=== PATIENT | female | born 1940 | race Caucasian/White ===

== ENCOUNTER 2017-08-29 18:33 | Inpatient (IN) ==
--- NOTE | 2017-08-29 18:39 | Emergency Department Note ---
Disposition Clinical Impression: Adnexal cyst, Renal cyst, Abdominal pain, History of dementia Chest pain Qualifiers: Chest pain type: unspecified Qualified Code(s): R07.9 - Chest pain, unspecified Acute renal failure (ARF) Qualifiers: Acute renal failure type: unspecified Qualified Code(s): N17.9 - Acute kidney failure, unspecified CKD (chronic kidney disease) Qualifiers: Chronic kidney disease stage: unspecified stage Qualified Code(s): N18.9 - Chronic kidney disease, unspecified Disposition: Admitted As Inpatient Condition: Fair Chest Pain HPI - General Chief Complaint: ED Chest Pain Stated Complaint: Chest Pain/Fariha Time Seen by Provider: 08/29/17 18:36 Source: patient, family Mode of arrival: private vehicle Limitations: other (Hx of dementia x 4 years ) Vital Signs Reviewed: Yes Nursing Notes Reviewed: Yes - History of Present Illness HPI Narrative: 74 year old female with history of dementia, HTN, HLD, CKD III presenting with pleuritic chest pain Pt complaint: chest pain Onset (ago): hour(s) Time: 07:30 Duration: constant Onset: awoke with symptoms Pain Location: right chest Severity: unable Pain Radiation: abdomen Improves with: nothing Worsens with: inspiration Context: other (No recent travel. No recent surgery. ) Associated symptoms: Reports: other Treatments prior to arrival chest pain: none - Related Data Home Medications Medication Instructions Recorded Confirmed Amlodipine [Norvasc] 5 mg PO QAM 02/12/15 03/21/15 Atenolol [Tenormin] 50 mg PO QPM 02/12/15 03/21/15 Cholecalciferol (D-3) 1,000 unit PO BID 03/21/15 03/21/15 Donepezil [Aricept] 5 mg PO HS 03/21/15 03/21/15 FLUoxetine HCl [Prozac] 10 mg PO QAM 03/21/15 03/21/15 Oxybutynin [Ditropan] 5 mg PO DAILY 03/21/15 03/21/15 TraMADol [Ultram] 50 mg PO Q4-6H PRN 03/21/15 03/21/15 Cetirizine HCl [Zyrtec] 10 mg PO 03/22/15 03/22/15 Simvastatin [Zocor] 40 mg PO HS 03/22/15 03/22/15 Previous Rx's Medication Instructions Recorded Mupirocin [Bactroban Oint] 22 gm TP BID #22 tube 11/19/15 Allergies Allergy/AdvReac Type Severity Reaction Status Date / Time Penicillins Allergy Hives Verified 02/12/15 07:57 Sulfa (Sulfonamide Allergy Hives Verified 02/12/15 07:57 Antibiotics) Constitutional: Denies: fever, chills, weakness Eyes: Denies: vision change Cardiovascular: Reports: as per HPI, chest pain. Denies: palpitations Respiratory: Denies: cough, dyspnea, wheezes, hemoptysis Gastrointestinal: Reports: as per HPI, abdominal pain. Denies: nausea, vomiting , diarrhea, hematemesis, melena, hematochezia Genitourinary: Denies: dysuria, frequency, hematuria Musculoskeletal: Reports: arthralgia (hands). Denies: back pain Neurological: Reports: other (dementia). Denies: headache, numbness Psychiatric: Denies: suicidal thoughts, homicidal thoughts Endocrine: Denies: fatigue Chest Pain PMH - Past Medical History Medical history: Reports: hypertension Surgical history: Reports: appendectomy, hysterectomy, orthopedic, other Psychiatric history: Reports: depression - Social History Smoking Status: Never smoker Alcohol use: Reports: occasionally Drug use: Reports: none Physical Exam - General Limitations: other (dementia) General appearance: in no apparent distress - Head Head exam: atraumatic, normocephalic Course - Reevaluation(s) Reevaluation #1: 20:00 - SpO2 > 94%. Status post NTG and aspirin, did not improve chest pain. Patient appears comfortable in bed. Reevaluation #2: 21:00 - Labs, UA reviewed with attending. Trace hematuria in UA. Plan for CT abdomen/pelvis without contrast. POA amenable to plan. Patient states she is amenable to CT. Reevaluation #3: 22:30 - Discussed labs, CT findings including incidental adenxal finding with impression recommendation and hospitalization. POA/daughter present. Pt and POA amenable to hospitalization. - Consultations Consultation #1: 22:00 - Dr. Pacheco in ED. Discussed clinical presentation, labs, imaging with finding of adenxal and renal cyst. Accepts admission for ACS r/o and further evaluation for CT findings. Vital Signs Temperature 98.8 F 08/29/17 18:34 Pulse Rate 79 08/29/17 18:34 Respiratory Rate 18 08/29/17 18:34 Blood Pressure 137/114 08/29/17 18:34 O2 Sat by Pulse Oximetry 99 08/29/17 18:34 Temperature 98.8 F 08/29/17 18:34 Pulse Rate 79 08/29/17 20:52 Respiratory Rate 18 08/29/17 20:52 Blood Pressure 145/74 08/29/17 20:52 O2 Sat by Pulse Oximetry 98 08/29/17 20:52 Oxygen Delivery Oxygen Delivery Room Air Chest Pain - MDM Narrative Medical decision making narrative: 77 y F with dementia cardiac risk factors presenting with chest pain with HEART Score of 5, patient remains at high risk, despite normal first troponin biomarker given ongoing chest pain. D-Dimer <500. Patient to be hospitalized for further evaluation. - Medical Records Medical records reviewed: Yes I reviewed the patient's medical records. - Lab Data Lab results reviewed: Yes I reviewed the patient's lab results. Result diagrams: 08/29/17 19:03 08/29/17 19:03 Lab Results 08/29/17 08/29/17 08/29/17 Range/Units 19:03 19:03 19:03 WBC 10.3 (4.3-11.1) K/mcL RBC 4.59 (3.82-4.97) M/mcL Hgb 12.6 (11.5-15.4) g/dL Hct 39.2 (35.3-44.9) % MCV 85.4 (83.0-100.0) fL MCH 27.5 L (28.0-33.3) pg MCHC 32.1 (31.6-35.5) g/dL RDW 13.3 (11.5-14.5) % Plt Count 296 (140-400) K/mcL MPV 9.6 (9.4-12.4) fL Immature Gran % 0.4 (0-4) % Seg Neutrophils % 74.8 % Lymphocytes % 14.6 % Monocytes % 8.3 % Eosinophils % 1.6 % Basophils % 0.3 % Neutrophils # 7.7 (1.6-8.9) K/mcL Lymphocytes # 1.5 (0.6-4.6) K/mcL Monocytes # 0.9 (0.0-1.3) K/mcL Eosinophils # 0.2 (0.0-0.6) K/mcL Basophils # 0.0 (0.0-0.2) K/mcL D-Dimer (0-500) ng/mLFEU Sodium 137 (136-145) mEq/L Potassium 3.8 (3.5-5.1) mEq/L Chloride 102 (98-107) mEq/L Carbon Dioxide 27 (23-29) mEq/L BUN 23 (8-23) mg/dL Creatinine 1.21 H (0.60-1.20) mg/dL Est GFR ( Amer) 52 L (> 60) Est GFR (Non-Af Amer) 43 L (> 60) BUN/Creatinine Ratio 19 (6-26) Glucose 91 (70-105) mg/dL Calculated Osmolality 287 (280-300) Calcium 9.4 (8.6-10.3) mg/dL Total Bilirubin 0.3 (0.3-1.0) mg/dL AST 19 (13-39) Units/L ALT 13 (7-52) Units/L Alkaline Phosphatase 118 H (34-104) Units/L Troponin I < 0.03 (< 0.04) ng/mL Serum Total Protein 7.4 (6.4-8.9) g/dL Albumin 4.1 (3.5-5.7) g/dL Globulin 3.3 (2.4-3.5) g/dL Albumin/Globulin Ratio 1.2 (1.1-2.2) Urine Color (Yellow) Urine Clarity (Clear) Urine pH (5.0-8.0) pH Units Ur Specific [place] (1.010-1.025) Urine Protein (Neg-Trace) mg/dL Urine Glucose (UA) (Normal) mg/dL Urine Ketones (Negative) mg/dL Urine Blood (Negative) Urine Nitrite (Negative) Urine Bilirubin (Negative) Urine Urobilinogen (Normal) mg/dL Ur Leukocyte Esterase (Negative) Urine Microscopic RBC (0-3) per hpf Urine Microscopic WBC (0-3) per hpf Ur Squamous Epith Cells (None-Few) per lpf Urine Bacteria (None-Few) per hpf Hyaline Casts (None-Few) per lpf Ur Culture Indicated? (NO) 08/29/17 08/29/17 Range/Units 19:14 20:50 WBC (4.3-11.1) K/mcL RBC (3.82-4.97) M/mcL Hgb (11.5-15.4) g/dL Hct (35.3-44.9) % MCV (83.0-100.0) fL MCH (28.0-33.3) pg MCHC (31.6-35.5) g/dL RDW (11.5-14.5) % Plt Count (140-400) K/mcL MPV (9.4-12.4) fL Immature Gran % (0-4) % Seg Neutrophils % % Lymphocytes % % Monocytes % % Eosinophils % % Basophils % % Neutrophils # (1.6-8.9) K/mcL Lymphocytes # (0.6-4.6) K/mcL Monocytes # (0.0-1.3) K/mcL Eosinophils # (0.0-0.6) K/mcL Basophils # (0.0-0.2) K/mcL D-Dimer 443 (0-500) ng/mLFEU Sodium (136-145) mEq/L Potassium (3.5-5.1) mEq/L Chloride (98-107) mEq/L Carbon Dioxide (23-29) mEq/L BUN (8-23) mg/dL Creatinine (0.60-1.20) mg/dL Est GFR ( Amer) (> 60) Est GFR (Non-Af Amer) (> 60) BUN/Creatinine Ratio (6-26) Glucose (70-105) mg/dL Calculated Osmolality (280-300) Calcium (8.6-10.3) mg/dL Total Bilirubin (0.3-1.0) mg/dL AST (13-39) Units/L ALT (7-52) Units/L Alkaline Phosphatase (34-104) Units/L Troponin I (< 0.04) ng/mL Serum Total Protein (6.4-8.9) g/dL Albumin (3.5-5.7) g/dL Globulin (2.4-3.5) g/dL Albumin/Globulin Ratio (1.1-2.2) Urine Color Yellow (Yellow) Urine Clarity Clear (Clear) Urine pH 6.0 (5.0-8.0) pH Units Ur Specific [place] 1.026 H (1.010-1.025) Urine Protein Trace (Neg-Trace) mg/dL Urine Glucose (UA) Normal (Normal) mg/dL Urine Ketones Negative (Negative) mg/dL Urine Blood Trace H (Negative) Urine Nitrite Negative (Negative) Urine Bilirubin Negative (Negative) Urine Urobilinogen Normal (Normal) mg/dL Ur Leukocyte Esterase Negative (Negative) Urine Microscopic RBC 5-15 H (0-3) per hpf Urine Microscopic WBC 0-3 (0-3) per hpf Ur Squamous Epith Cells Many H (None-Few) per lpf Urine Bacteria None Seen (None-Few) per hpf Hyaline Casts None Seen (None-Few) per lpf Ur Culture Indicated? NO (NO) - Radiology Data Radiology results reviewed: Yes I reviewed the patient's radiology results. - EKG Data EKG attestation: Yes I reviewed and interpreted this EKG. EKG results narrative: 18:35:51 Vent rate 89. [place] int 138 ms. QRS 85 ms. QT/QTc 347/394 ms. Ectopic premature complexes noted. Reviewed with attending. Heart Score - Score History: Moderately Suspicious EKG: Normal Age: Greater than 65 Risk Factors: Equal/Greater than 3 risk factor or history of atherosclerotic disease Troponin: Less than normal limit HEART Score Total: 5
[2017-08-29] MEDS ORDERED: Aspirin 81 MG TAB.CHEW PO STA (19:00)
[2017-08-29 19:23] LABS: Basophils % 0.3 %; Eosinophils # 0.2 K/mcL (0.0-0.6); Eosinophils % 1.6 %; Hematocrit 39.2 % (35.3-44.9); Hemoglobin 12.6 g/dL (11.5-15.4); Immature Granulocytes % 0.4 % (0-4); Lymphocytes # 1.5 K/mcL (0.6-4.6); Lymphocytes % 14.6 %; Mean Corpuscular HGB Conc 32.1 g/dL (31.6-35.5); Mean Corpuscular Hemoglobin 27.5 pg (28.0-33.3); Mean Corpuscular Volume 85.4 fL (83.0-100.0); Mean Platelet Volume 9.6 fL (9.4-12.4); Monocytes # 0.9 K/mcL (0.0-1.3); Monocytes % 8.3 %; Neutrophils # 7.7 K/mcL (1.6-8.9); Platelet Count 296 K/mcL (140-400); Red Blood Count 4.59 M/mcL (3.82-4.97); Red Cell Distribution Width 13.3 % (11.5-14.5); Segmented Neutrophils % 74.8 %
[2017-08-29] MEDS ORDERED: Nitroglycerin 0.4 MG TAB.SUBL SL ONE (19:28)
[2017-08-29 19:42] LABS: Albumin 4.1 g/dL (3.5-5.7); Albumin/Globulin Ratio 1.2 (1.1-2.2); Bilirubin,Total 0.3 mg/dL (0.3-1.0); Calcium 9.4 mg/dL (8.6-10.3); Globulin 3.3 g/dL (2.4-3.5); Potassium 3.8 mEq/L (3.5-5.1); Total Protein 7.4 g/dL (6.4-8.9)
[2017-08-29 20:59] LABS: Bilirubin,Urine Negative (Negative); Blood,Urine Trace (Negative); Clarity,Urine Clear (Clear); Color,Urine Yellow (Yellow); Glucose,Urine (UA) Normal (Normal); Ketones,Urine Negative (Negative); Leukocyte Esterase,Urine Negative (Negative); Nitrite,Urine Negative (Negative); Protein,Urine Trace mg/dL (Neg-Trace); Specific Gravity,Urine 1.026 (1.010-1.025); Urobilinogen,Urine Normal (Normal)
[2017-08-29 21:02] LABS: Bacteria,Urine None Seen per hpf (None-Few); Hyaline Casts,Urine None Seen per lpf (None-Few); Squamous Epithelial Cell,Urine Many per lpf (None-Few); WBC,Urine 0-3 per hpf (0-3)
[2017-08-29] MEDS ORDERED: Naloxone 0.4 MG/ML INJ IVP PRN (22:54)
[2017-08-29] MEDS ORDERED: Acetaminophen 325 MG TABLET PO PRN (22:54)
--- NOTE | 2017-08-29 23:41 | Internal Med History&Physical ---
Date of Encounter: 08/29/17 Time of Encounter: 21:00 Internal Medicine - H&P: HPI Chief complaint: Chest pain Admitted From: Home Plans for Post Hospital Care: Home History of present illness: Ms. Marvin is a 77 year old female complaining of chest pain since this morning. Past medical history is significant for dementia, hypertension, CKD. Patient is severe demented. History is obtained from patient's daughter (and POA). Patient complaining of right-sided chest pain since this morning. Patient cannot clearly describe the character of the pain. Patient seems has no shortness of breath, nausea, vomiting, fever, cough, or diaphoresis. Patient said the pain is getting worse on deep breathing. Literally patient also complaining right upper quadrant pain and goes to her right groin area. In the emergency room, d-dimer is negative, abdominal CT unremarkable except incidentally found left side ovary cyst. Patient was admitted for further management, especially to rule out ACS. Past Med Surg Social Fam HX - Past Medical History Medical history: hypertension Psychiatric history: depression - Past Surgical History Surgical History: appendectomy, hysterectomy, orthopedic, other - Social History Smoking Status: Never smoker Smokeless Tobacco Status: No Alcohol use: occasionally Drug use: none - Family History Mother Living Status: Hx Family Cardiac Disorders: Yes Hx Family Respiratory Disorders: Yes Hx Family Cancer: No Hx Family GI Disorders: Yes Hx Family Endocrine Disorder: No Hx Family Neuromuscular Disorders: No Hx Family Neurologic Disorders: No Hx Family HEENT Disorders: No Hx Family Autoimmune Disorders: Yes Internal Medicine - H&P: Meds Amlodipine [Norvasc] 5 mg PO QAM 02/12/15 [History] Atenolol [Tenormin] 50 mg PO QPM 02/12/15 [History] Cholecalciferol (D-3) 1,000 unit PO BID 03/21/15 [History] Donepezil [Aricept] 5 mg PO HS 03/21/15 [History] FLUoxetine HCl [Prozac] 10 mg PO QAM 03/21/15 [History] Oxybutynin [Ditropan] 5 mg PO DAILY 03/21/15 [History] TraMADol [Ultram] 50 mg PO Q4-6H PRN 03/21/15 [History] Cetirizine HCl [Zyrtec] 10 mg PO 03/22/15 [History] Simvastatin [Zocor] 40 mg PO HS 03/22/15 [History] Mupirocin [Bactroban Oint] 22 gm TP BID #22 tube 11/19/15 [Rx] 3 Allergy/AdvReac Type Severity Reaction Status Date / Time Penicillins Allergy Hives Verified 02/12/15 07:57 Sulfa (Sulfonamide Allergy Hives Verified 02/12/15 07:57 Antibiotics) All Systems PM: A 10-system review of systems was performed and is negative for pertinent findings except as documented above in the HPI. - Constitutional Vitals: Temp Pulse Resp BP Pulse Ox 98.8 F 79 18 141/76 98 08/29/17 18:34 08/29/17 20:52 08/29/17 23:29 08/29/17 23:29 08/29/17 20:52 General appearance: Present: A&O X 0, no acute distress, answers questions appropriately - Head Head exam: Present: atraumatic, normocephalic - Eye Eye exam: Present: PERRL, conjuntiva pink, sclera anicteric Pupils: Present: PERRL - Neck Neck exam general surgery: Present: supple, trachea midline. Absent: lymphadenopathy - Respiratory Respiratory exam: Present: CTAB. Absent: accessory muscle use, rales, rhonchi, wheezes - Cardiovascular Cardiovascular exam: Present: RRR, +S1, +S2. Absent: diastolic murmur, gallop, rubs, systolic murmur - GI/Abdominal GI/Abdominal exam: Present: normal bowel sounds, soft, tenderness (RUQ tenderness with positive Morphy's sign), no peritoneal signs. Absent: distended - Extremities Exam Extremities exam: Present: warm, radial pulses palpable and symmetrical. Absent : calf tenderness, cyanotic, pedal edema - Neurological Exam Neurological exam: Present: CN II-XII intact, oriented X3, no focal deficits. Absent: pronater drift, facial droop, speech deficit - Skin Skin exam: Present: dry, intact Internal Med - H&P Results - Labs CBC & Chem 7: 08/29/17 19:03 08/29/17 19:03 - EKG Data -: EKG Interpreted by Myself EKG shows normal: sinus rhythm Rate: normal - Assessment and plan (1) Right upper quadrant pain Current Visit: Yes Status: Acute Assessment and plan: Etiology is undetermined. Patient has no fever, no leukocytosis, within normal limit liver function and bilirubin level. CT abdomen shows cholelithiasis. - We will order ultrasound liver to further identify gallbladder/bile duct abnormalities. - Symptomatic treatment at this point (2) DVT prophylaxis Current Visit: Yes Status: Acute Assessment and plan: Heparin subcutaneously (3) Adnexal cyst Current Visit: Yes Status: Acute Assessment and plan: Incidental finding by abdominal CT. Will order pelvis ultrasound and CA-125. We will consult PLANNING AIDE. Nonurgent, day shift to call. (4) CKD (chronic kidney disease) Current Visit: Yes Status: Acute Assessment and plan: Creatinine level is at baseline Qualifiers: Chronic kidney disease stage: stage 3 (moderate) Qualified Code(s): N18.3 - Chronic kidney disease, stage 3 (moderate) (5) Chest pain Current Visit: Yes Status: Acute Assessment and plan: Patient has atypical chest pain. Chest x-ray and EKG unremarkable. D-dimer negative. Less likely PE. Need to rule out ACS. - Continue cardiac monitoring - Track 3 sets of troponin - Echocardiogram in a.m. Qualifiers: Chest pain type: unspecified Qualified Code(s): R07.9 - Chest pain, unspecified (6) History of dementia Current Visit: Yes Status: Acute Assessment and plan: Continue home medications (7) Renal cyst Current Visit: Yes Status: Acute Assessment and plan: Continue outpatient follow-up - Time Spent With Patient Total time spent is greater than 50% in coordination of care (as documented) at patient's floor/unit and/or counseling patient: 40 minutes Greater than 35 minutes
--- NOTE | 2017-08-29 23:47 | Emergency Department Note ---
Disposition Clinical Impression: Adnexal cyst, Renal cyst, Abdominal pain, History of dementia Chest pain Qualifiers: Chest pain type: unspecified Qualified Code(s): R07.9 - Chest pain, unspecified Acute renal failure (ARF) Qualifiers: Acute renal failure type: unspecified Qualified Code(s): N17.9 - Acute kidney failure, unspecified CKD (chronic kidney disease) Qualifiers: Chronic kidney disease stage: unspecified stage Qualified Code(s): N18.9 - Chronic kidney disease, unspecified Disposition: Admitted As Inpatient Condition: Fair General Adult HPI - General Chief complaint: ED Chest Pain Stated complaint: Chest Pain/Fariha Time Seen by Provider: 08/29/17 18:36 Source: patient, family Mode of arrival: private vehicle Limitations: other (dementia) - History of Present Illness Pain Scale: 2 - Related Data Home Medications Medication Instructions Recorded Confirmed Amlodipine [Norvasc] 5 mg PO QAM 02/12/15 03/21/15 Atenolol [Tenormin] 50 mg PO QPM 02/12/15 03/21/15 Cholecalciferol (D-3) 1,000 unit PO BID 03/21/15 03/21/15 Donepezil [Aricept] 5 mg PO HS 03/21/15 03/21/15 FLUoxetine HCl [Prozac] 10 mg PO QAM 03/21/15 03/21/15 Oxybutynin [Ditropan] 5 mg PO DAILY 03/21/15 03/21/15 TraMADol [Ultram] 50 mg PO Q4-6H PRN 03/21/15 03/21/15 Cetirizine HCl [Zyrtec] 10 mg PO 03/22/15 03/22/15 Simvastatin [Zocor] 40 mg PO HS 03/22/15 03/22/15 Previous Rx's Medication Instructions Recorded Mupirocin [Bactroban Oint] 22 gm TP BID #22 tube 11/19/15 Allergies Allergy/AdvReac Type Severity Reaction Status Date / Time Penicillins Allergy Hives Verified 02/12/15 07:57 Sulfa (Sulfonamide Allergy Hives Verified 02/12/15 07:57 Antibiotics) Constitutional: Denies: fever, chills, weakness Eyes: Denies: vision change Cardiovascular: Reports: as per HPI, chest pain. Denies: palpitations Respiratory: Denies: cough, dyspnea, wheezes, hemoptysis Gastrointestinal: Reports: as per HPI, abdominal pain. Denies: nausea, vomiting , diarrhea, hematemesis, melena, hematochezia Genitourinary: Denies: dysuria, frequency, hematuria Musculoskeletal: Reports: arthralgia (hands). Denies: back pain Neurological: Reports: other (dementia). Denies: headache, numbness Psychiatric: Denies: suicidal thoughts, homicidal thoughts Endocrine: Denies: fatigue Past Medical History - Past Medical History Medical history: Reports: hypertension Surgical history: Reports: appendectomy, hysterectomy, orthopedic, other Psychiatric history: Reports: depression - Social History Smoking Status: Never smoker Smokeless Tobacco Status: No Alcohol use: Reports: occasionally Drug use: Reports: none Physical Exam - General Limitations: other (dementia) General appearance: in no apparent distress Course Vital Signs Temperature 98.8 F 08/29/17 18:34 Pulse Rate 79 08/29/17 18:34 Respiratory Rate 18 08/29/17 18:34 Blood Pressure 137/114 08/29/17 18:34 O2 Sat by Pulse Oximetry 99 08/29/17 18:34 Temperature 98.8 F 08/29/17 18:34 Pulse Rate 79 08/29/17 20:52 Respiratory Rate 18 08/29/17 23:29 Blood Pressure 141/76 08/29/17 23:29 O2 Sat by Pulse Oximetry 98 08/29/17 20:52 Oxygen Delivery Oxygen Delivery Room Air Medical Decision Making - Lab Data Result diagrams: 08/29/17 19:03 08/29/17 19:03 Lab Results 08/29/17 08/29/17 08/29/17 Range/Units 19:03 19:03 19:03 WBC 10.3 (4.3-11.1) K/mcL RBC 4.59 (3.82-4.97) M/mcL Hgb 12.6 (11.5-15.4) g/dL Hct 39.2 (35.3-44.9) % MCV 85.4 (83.0-100.0) fL MCH 27.5 L (28.0-33.3) pg MCHC 32.1 (31.6-35.5) g/dL RDW 13.3 (11.5-14.5) % Plt Count 296 (140-400) K/mcL MPV 9.6 (9.4-12.4) fL Immature Gran % 0.4 (0-4) % Seg Neutrophils % 74.8 % Lymphocytes % 14.6 % Monocytes % 8.3 % Eosinophils % 1.6 % Basophils % 0.3 % Neutrophils # 7.7 (1.6-8.9) K/mcL Lymphocytes # 1.5 (0.6-4.6) K/mcL Monocytes # 0.9 (0.0-1.3) K/mcL Eosinophils # 0.2 (0.0-0.6) K/mcL Basophils # 0.0 (0.0-0.2) K/mcL D-Dimer (0-500) ng/mLFEU Sodium 137 (136-145) mEq/L Potassium 3.8 (3.5-5.1) mEq/L Chloride 102 (98-107) mEq/L Carbon Dioxide 27 (23-29) mEq/L BUN 23 (8-23) mg/dL Creatinine 1.21 H (0.60-1.20) mg/dL Est GFR ( Amer) 52 L (> 60) Est GFR (Non-Af Amer) 43 L (> 60) BUN/Creatinine Ratio 19 (6-26) Glucose 91 (70-105) mg/dL Calculated Osmolality 287 (280-300) Calcium 9.4 (8.6-10.3) mg/dL Total Bilirubin 0.3 (0.3-1.0) mg/dL AST 19 (13-39) Units/L ALT 13 (7-52) Units/L Alkaline Phosphatase 118 H (34-104) Units/L Troponin I < 0.03 (< 0.04) ng/mL Serum Total Protein 7.4 (6.4-8.9) g/dL Albumin 4.1 (3.5-5.7) g/dL Globulin 3.3 (2.4-3.5) g/dL Albumin/Globulin Ratio 1.2 (1.1-2.2) Urine Color (Yellow) Urine Clarity (Clear) Urine pH (5.0-8.0) pH Units Ur Specific [place] (1.010-1.025) Urine Protein (Neg-Trace) mg/dL Urine Glucose (UA) (Normal) mg/dL Urine Ketones (Negative) mg/dL Urine Blood (Negative) Urine Nitrite (Negative) Urine Bilirubin (Negative) Urine Urobilinogen (Normal) mg/dL Ur Leukocyte Esterase (Negative) Urine Microscopic RBC (0-3) per hpf Urine Microscopic WBC (0-3) per hpf Ur Squamous Epith Cells (None-Few) per lpf Urine Bacteria (None-Few) per hpf Hyaline Casts (None-Few) per lpf Ur Culture Indicated? (NO) 08/29/17 08/29/17 Range/Units 19:14 20:50 WBC (4.3-11.1) K/mcL RBC (3.82-4.97) M/mcL Hgb (11.5-15.4) g/dL Hct (35.3-44.9) % MCV (83.0-100.0) fL MCH (28.0-33.3) pg MCHC (31.6-35.5) g/dL RDW (11.5-14.5) % Plt Count (140-400) K/mcL MPV (9.4-12.4) fL Immature Gran % (0-4) % Seg Neutrophils % % Lymphocytes % % Monocytes % % Eosinophils % % Basophils % % Neutrophils # (1.6-8.9) K/mcL Lymphocytes # (0.6-4.6) K/mcL Monocytes # (0.0-1.3) K/mcL Eosinophils # (0.0-0.6) K/mcL Basophils # (0.0-0.2) K/mcL D-Dimer 443 (0-500) ng/mLFEU Sodium (136-145) mEq/L Potassium (3.5-5.1) mEq/L Chloride (98-107) mEq/L Carbon Dioxide (23-29) mEq/L BUN (8-23) mg/dL Creatinine (0.60-1.20) mg/dL Est GFR ( Amer) (> 60) Est GFR (Non-Af Amer) (> 60) BUN/Creatinine Ratio (6-26) Glucose (70-105) mg/dL Calculated Osmolality (280-300) Calcium (8.6-10.3) mg/dL Total Bilirubin (0.3-1.0) mg/dL AST (13-39) Units/L ALT (7-52) Units/L Alkaline Phosphatase (34-104) Units/L Troponin I (< 0.04) ng/mL Serum Total Protein (6.4-8.9) g/dL Albumin (3.5-5.7) g/dL Globulin (2.4-3.5) g/dL Albumin/Globulin Ratio (1.1-2.2) Urine Color Yellow (Yellow) Urine Clarity Clear (Clear) Urine pH 6.0 (5.0-8.0) pH Units Ur Specific [place] 1.026 H (1.010-1.025) Urine Protein Trace (Neg-Trace) mg/dL Urine Glucose (UA) Normal (Normal) mg/dL Urine Ketones Negative (Negative) mg/dL Urine Blood Trace H (Negative) Urine Nitrite Negative (Negative) Urine Bilirubin Negative (Negative) Urine Urobilinogen Normal (Normal) mg/dL Ur Leukocyte Esterase Negative (Negative) Urine Microscopic RBC 5-15 H (0-3) per hpf Urine Microscopic WBC 0-3 (0-3) per hpf Ur Squamous Epith Cells Many H (None-Few) per lpf Urine Bacteria None Seen (None-Few) per hpf Hyaline Casts None Seen (None-Few) per lpf Ur Culture Indicated? NO (NO) Attestation Statement - Attestation Attestation: I examined this patient and my medical decision-making was reviewed with the Resident Physician. I agree with the documented findings, disposition and treatment plan as described except to the extent set forth below. Poor historian d/t dementia, describes sx poorly. Discussed in detail w Dr. Chung and Dr. Riggins.
[2017-08-30 01:18] LABS: Basophils % 0.2 %; Eosinophils # 0.1 K/mcL (0.0-0.6); Eosinophils % 0.7 %; Hemoglobin 12.1 g/dL (11.5-15.4); Immature Granulocytes % 0.4 % (0-4); Lymphocytes # 1.2 K/mcL (0.6-4.6); Lymphocytes % 9.6 %; Mean Corpuscular HGB Conc 32.7 g/dL (31.6-35.5); Mean Corpuscular Hemoglobin 27.6 pg (28.0-33.3); Mean Corpuscular Volume 84.5 fL (83.0-100.0); Mean Platelet Volume 9.6 fL (9.4-12.4); Monocytes # 0.9 K/mcL (0.0-1.3); Monocytes % 7.4 %; Platelet Count 287 K/mcL (140-400); Red Blood Count 4.38 M/mcL (3.82-4.97); Red Cell Distribution Width 13.2 % (11.5-14.5); Segmented Neutrophils % 81.7 %
[2017-08-30 01:41] LABS: Calcium 9.3 mg/dL (8.6-10.3); Magnesium 2.1 mg/dL (1.6-2.6); Potassium 3.9 mEq/L (3.5-5.1)
[2017-08-30] MEDS: *HR* Heparin 5,000 UNIT/ML VIAL SQ SCH ×2 (06:24→17:44)
[2017-08-30] MEDS: FLUoxetine HCl 10 MG CAPSULE PO SCH (07:38)
[2017-08-30] MEDS: amLODIPine 5 MG TABLET PO SCH (07:39)
--- NOTE | 2017-08-30 11:40 | Internal Med Progress Note ---
Date of Encounter: 08/30/17 Time of Encounter: 11:30 - Assessment and plan (1) Right upper quadrant pain Current Visit: Yes Status: Acute Assessment and plan: Likely 2/[address] abdomen shows cholelithiasis. - We will order ultrasound liver to further identify gallbladder/bile duct abnormalities. Surgery consulted. Appreciate surgery recs (2) CKD (chronic kidney disease) Current Visit: Yes Status: Acute Assessment and plan: Creatinine level is at baseline Qualifiers: Chronic kidney disease stage: stage 3 (moderate) Qualified Code(s): N18.3 - Chronic kidney disease, stage 3 (moderate) (3) Adnexal cyst Current Visit: Yes Status: Acute Assessment and plan: Incidental finding by abdominal CT. Will order pelvis ultrasound and CA-125. Outpatient follow up (4) Renal cyst Current Visit: Yes Status: Acute Assessment and plan: Continue outpatient follow-up (5) History of dementia Current Visit: Yes Status: Acute Assessment and plan: Continue home medications (6) DVT prophylaxis Current Visit: Yes Status: Acute Assessment and plan: Heparin subcutaneously (7) Chest pain Current Visit: Yes Status: Acute Assessment and plan: Patient has atypical chest pain. Chest x-ray and EKG unremarkable. D-dimer negative. Less likely PE. Need to rule out ACS. - Continue cardiac monitoring - Track 3 sets of troponin - Echocardiogram in a.m. Qualifiers: Chest pain type: unspecified Qualified Code(s): R07.9 - Chest pain, unspecified - Time Spent With Patient Total time spent is greater than 50% in coordination of care (as documented) at patient's floor/unit and/or counseling patient: - Subjective Interval history: No acute events overnight - Constitutional Vitals: Temp Pulse Resp BP Pulse Ox 98.2 F 76 18 153/83 93 08/30/17 11:20 08/30/17 11:20 08/30/17 11:20 08/30/17 11:20 08/30/17 11:20 General appearance: Present: A&O X 0, no acute distress, answers questions appropriately - Head Head exam: Present: atraumatic, normocephalic - Eye Eye exam: Present: PERRL, conjuntiva pink, sclera anicteric Pupils: Present: PERRL - Neck Neck exam general surgery: Present: supple, trachea midline. Absent: lymphadenopathy - Respiratory Respiratory exam: Present: CTAB. Absent: accessory muscle use, rales, rhonchi, wheezes - Cardiovascular Cardiovascular exam: Present: RRR, +S1, +S2. Absent: diastolic murmur, gallop, rubs, systolic murmur - GI/Abdominal GI/Abdominal exam: Present: normal bowel sounds, soft, no peritoneal signs. Absent: distended, tenderness - Extremities Exam Extremities exam: Present: warm, radial pulses palpable and symmetrical. Absent : calf tenderness, cyanotic, pedal edema - Neurological Exam Neurological exam: Present: CN II-XII intact, oriented X3, no focal deficits. Absent: pronater drift, facial droop, speech deficit - Skin Skin exam: Present: dry, intact Internal Medicine: Result - Labs CBC & Chem 7: 08/30/17 01:00 08/30/17 01:00 Labs: Short CBC 08/30/17 Range/Units 01:00 WBC 12.3 H (4.3-11.1) K/mcL Hgb 12.1 (11.5-15.4) g/dL Hct 37.0 (35.3-44.9) % Plt Count 287 (140-400) K/mcL Neutrophils # 10.0 H (1.6-8.9) K/mcL BMP 08/30/17 01:00 Sodium 137 Potassium 3.9 Chloride 102 Carbon Dioxide 27 BUN 21 Creatinine 1.10 Glucose 116 H Calcium 9.3 Cardiac Enzymes 08/30/17 08/30/17 Range/Units 01:00 06:19 Troponin I < 0.03 < 0.03 (< 0.04) ng/mL - ABG Interpretation ABG results: PT/INR, D-dimer D-Dimer 443 ng/mLFEU (0-500) 08/29/17 19:14 Consult Discharge Plan - Plan Referrals: Sergei Anderson DO [Primary Care Provider] -
--- NOTE | 2017-08-30 14:22 | General Surgery Consult Note ---
<Long Lopez - Last Filed: 08/30/17 14:54> Date of Encounter: 08/30/17 Time of Encounter: 14:20 Assessment and Plan (1) Cholelithiasis Status: Acute CT abd pelvis showed: "Single calcified gallstone. No definite gallbladder wall thickening or inflammatory changes. No biliary ductal dilatation. " CT Images reviewed by myself and Dr. Bennett. Cholelithiasis present. No signs of cholecystitis, or obstruction of gallbladder on imaging. No tenderness to palpation on exam. Negative Polanco's sign. plan: Will review U/S images when they become available. No need for surgical intervention at this point. Patient can follow up with surgery as an outpatient for her cholelithiasis. Qualifiers: Cholelithiasis location: gallbladder Cholecystitis presence: without cholecystitis Biliary obstruction: without biliary obstruction Qualified Code(s): K80.20 - Calculus of gallbladder without cholecystitis without obstruction History of Present Illness Consult date: 08/30/17 Reason for consult: gallstones Requesting physician: Frankie Garduno History of present illness: 77 yo F c PMHx of dementia, HTN, CKD presented ot the hospital for R sided chest pain beginning the morning of admission yesterday. History at that time was provided by Daughter her RIKAA. No family is present at bedside at this time. History is obtained from chart review and what the aptient is able to tell me, but she is a very poor historian. Per records patient complained of R sided chest pain and RUQ pain that radiated to the groin . Records indicate patient said pain was worse with deep breathing. Patient had no SOB, , N, V, D, Fever, cough, or diaphoresis. Pt was worked up in the ED. Lab work showed negative D-Dimer, negative troponin. WBC, Hgb, Hct, plts all wnl. Alk phos slightly elevatd at 118, but all other LFTs normal. CT abd pelvis showed: "Single calcified gallstone. No definite gallbladder wall thickening or inflammatory changes. No biliary ductal dilatation. 7.1 cm right and 3.8 cm left adnexal cysts. Recommend consideration of MRI with IV contrast or surgical evaluation. 3.9 cm right renal cyst. This is likely benign and no further imaging is recommended. Small volume of nonspecific fluid posterior to the right hepatic lobe." Today WBC is slightly elevated at 12.3. On talking with patient she cannot describe the pain or say for sure where the pain was. when pressed she indicates her leg as being where the pain was. She denies abd pain, N, V, D, Chest pain, SOB, constipation. She does not know if she's ever had surgery on her abdomen before. She does have a surgical scar on her abd. Chart review indicates patient had , ex lap for adhesion, and an appendectomy. Past Med Surg Social Fam HX - Past Medical History Medical history: hyperlipidemia, hypertension, renal disease Psychiatric history: depression - Past Surgical History Surgical History: appendectomy, , hysterectomy, orthopedic, other - Social History Smoking Status: Never smoker Smokeless Tobacco Status: No Alcohol use: occasionally Drug use: none - Family History Mother Adopted: [place]: Zaira Cornejo Age: 80 Family Member Ethnicity: Non- Living Status: Age at : 80 Cause of : COPD Hx Family Cardiac Disorders: Yes Hx Family Respiratory Disorders: Yes (COPD) Hx Family Cancer: No Hx Family GI Disorders: No Hx Family Genitourinary Disorders: No Hx Family Endocrine Disorder: No Hx Family Musculoskeletal Disorders: No Hx Family Neuromuscular Disorders: No Hx Family Neurologic Disorders: No Hx Family HEENT Disorders: No Hx Family Autoimmune Disorders: No Hx Family Reproductive Disorders: No Hx Family Psychosocial Disorders: No Hx Family Medical Disorders: No Medications and Allergies Amlodipine [Norvasc] 5 mg PO QAM 02/12/15 [History] Donepezil [Aricept] 10 mg PO HS 03/21/15 [History] FLUoxetine HCl [Prozac] 10 mg PO QAM 03/21/15 [History] Oxybutynin [Ditropan] 5 mg PO DAILY 03/21/15 [History] Cetirizine HCl [Zyrtec] 10 mg PO PRN PRN 03/22/15 [History] Simvastatin [Zocor] 40 mg PO HS 03/22/15 [History] Melatonin/Pyridoxine HCl (B6) [Melatonin 3 mg Tablet] 1 each PO PRN PRN [History] Memantine HCl 10 mg PO BID 08/30/17 [History] Metoprolol [Lopressor] 25 mg PO DAILY 08/30/17 [History] Ursodiol 250 mg PO BID #60 tablet 08/31/17 [Rx] 3 Allergy/AdvReac Type Severity Reaction Status Date / Time Penicillins Allergy Hives Verified 08/30/17 12:36 Sulfa (Sulfonamide Allergy Hives Verified 08/30/17 12:36 Antibiotics) Review of Systems All systems PM: The remainder of the systems were reviewed and are negative General Surgery Exam Initial Vital Signs Temp Pulse Resp BP Pulse Ox 98.8 F 79 18 137/114 99 08/29/17 18:34 08/29/17 18:34 08/29/17 18:34 08/29/17 18:34 08/29/17 18:34 - General physical appearance well developed, well nourished, no distress - Eyes normal ocular movement - ENT normal mucosa - Neck trachea midline - Respiratory normal expansion, normal respiratory effort, clear to auscultation - Cardiovascular Cardiovascular exam: Present: RRR, no murmurs/rubs/gallops - Abdomen Abdomen general surgery: Present: bowel sounds present, soft, non tender, surgical scars - Integumentary Integumentary general surgery: Present: warm and dry - Neurologic Present: CN 2-12 grossly intact - Musculoskeletal Present: normal posture - Psychiatric Psychiatric general surgery: Present: appropriate, speech is normal Exam Initial Vital Signs Temp Pulse Resp BP Pulse Ox 98.8 F 79 18 137/114 99 08/29/17 18:34 08/29/17 18:34 08/29/17 18:34 08/29/17 18:34 08/29/17 18:34 Results - Labs 08/30/17 01:00 08/30/17 01:00 Abnormal lab results WBC 12.3 K/mcL (4.3-11.1) H 08/30/17 01:00 MCH 27.6 pg (28.0-33.3) L 08/30/17 01:00 Neutrophils # 10.0 K/mcL (1.6-8.9) H 08/30/17 01:00 Est GFR ( Amer) 58 (> 60) L 08/30/17 01:00 Est GFR (Non-Af Amer) 48 (> 60) L 08/30/17 01:00 Glucose 116 mg/dL (70-105) H 08/30/17 01:00 Alkaline Phosphatase 118 Units/L (34-104) H 08/29/17 19:03 Ur Specific Lipan 1.026 (1.010-1.025) H 08/29/17 20:50 Urine Blood Trace (Negative) H 08/29/17 20:50 Urine Microscopic RBC 5-15 per hpf (0-3) H 08/29/17 20:50 Ur Squamous Epith Cells Many per lpf (None-Few) H 08/29/17 20:50 Diabetes panel 08/30/17 Range/Units 01:00 Sodium 137 (136-145) mEq/L Potassium 3.9 (3.5-5.1) mEq/L Chloride 102 (98-107) mEq/L Carbon Dioxide 27 (23-29) mEq/L BUN 21 (8-23) mg/dL Creatinine 1.10 (0.60-1.20) mg/dL Glucose 116 H (70-105) mg/dL Calcium 9.3 (8.6-10.3) mg/dL Calcium panel 08/30/17 Range/Units 01:00 Calcium 9.3 (8.6-10.3) mg/dL Pituitary panel 08/30/17 Range/Units 01:00 Sodium 137 (136-145) mEq/L Potassium 3.9 (3.5-5.1) mEq/L Chloride 102 (98-107) mEq/L Carbon Dioxide 27 (23-29) mEq/L BUN 21 (8-23) mg/dL Creatinine 1.10 (0.60-1.20) mg/dL Glucose 116 H (70-105) mg/dL Calcium 9.3 (8.6-10.3) mg/dL Adrenal panel 08/30/17 Range/Units 01:00 Sodium 137 (136-145) mEq/L Potassium 3.9 (3.5-5.1) mEq/L Chloride 102 (98-107) mEq/L Carbon Dioxide 27 (23-29) mEq/L BUN 21 (8-23) mg/dL Creatinine 1.10 (0.60-1.20) mg/dL Glucose 116 H (70-105) mg/dL Calcium 9.3 (8.6-10.3) mg/dL All other labs normal. Consult Discharge Plan - Plan Additional Instructions: Follow-up appointments: If there is not an appointment listed below, please call your physician and schedule a follow-up appointment. If you have congestive heart failure and your symptoms return, make an appointment with your physician. Medication List: Carry an up to date list of medications you are taking at all time. We have given you an updated medication list including any new medications that you have been prescribed. Please provide that list to your primary provider Symptoms: If your condition changes or you experience any of the following symptoms, notify your physician immediately: Unusual or worsening pain, fever, persistent nausea and vomiting, bleeding, increase in swelling (especially in your legs), sudden weight gain, extreme dizziness, chest pain, increased drainage or redness from a wound or incision. Go to the emergency department if you experience a problem with breathing. Weights: If you have a history of swelling or shortness of breath, weigh yourself daily and notify your physician if you have a weight gain of two or more pounds in one day or 5 or more pounds in a week. If you experience any of the warning signs for stroke: Sudden numbness or weakness of the face, arm or leg; especially on one side of the body, sudden confusion, trouble speaking or understanding, sudden trouble seeing in one or both eyes, sudden trouble walking, dizziness, loss of balance or coordination, sudden sever headache with no cause; Call 911 or go to the emergency room. Stroke is a medical emergency. Some risk factors for stroke: Age, cigarette smoking, diabetes, excessive alcohol consumption, family history , high blood pressure, overweight, physical inactivity, prior stroke, heart attack, diagnosis of carotid artery stenosis or other artery disease. If you smoke, STOP: Smoking or tobacco use significantly increases your risk of heart and lung disease. Your chance of disease greatly increases if you continue to smoke. For more information, call the [place] tobacco quit line for smoking cessation QUIT-NOW ( ) Prescriptions: Ursodiol 250 mg PO BID #60 tablet <Arnie Bennett - Last Filed: 08/31/17 15:08> Date of Encounter: 08/30/17 Review of Systems All systems PM: The remainder of the systems were reviewed and are negative General Surgery Exam Initial Vital Signs Temp Pulse Resp BP Pulse Ox 98.8 F 79 18 137/114 99 08/29/17 18:34 08/29/17 18:34 08/29/17 18:34 08/29/17 18:34 08/29/17 18:34 Exam Initial Vital Signs Temp Pulse Resp BP Pulse Ox 98.8 F 79 18 137/114 99 08/29/17 18:34 08/29/17 18:34 08/29/17 18:34 08/29/17 18:34 08/29/17 18:34 Results - Labs 08/31/17 01:09 08/31/17 01:09 Abnormal lab results MCH 27.1 pg (28.0-33.3) L 08/31/17 01:09 Est GFR ( Amer) 56 (> 60) L 08/31/17 01:09 Est GFR (Non-Af Amer) 46 (> 60) L 08/31/17 01:09 Alkaline Phosphatase 118 Units/L (34-104) H 08/29/17 19:03 CA 125 Ag Serial Mntr 39 U/mL (Less than 35) H 08/31/17 10:26 Ur Specific Lipan 1.026 (1.010-1.025) H 08/29/17 20:50 Urine Blood Trace (Negative) H 08/29/17 20:50 Urine Microscopic RBC 5-15 per hpf (0-3) H 08/29/17 20:50 Ur Squamous Epith Cells Many per lpf (None-Few) H 08/29/17 20:50 Diabetes panel 08/31/17 Range/Units 01:09 Sodium 136 (136-145) mEq/L Potassium 4.0 (3.5-5.1) mEq/L Chloride 103 (98-107) mEq/L Carbon Dioxide 27 (23-29) mEq/L BUN 21 (8-23) mg/dL Creatinine 1.14 (0.60-1.20) mg/dL Glucose 105 (70-105) mg/dL Calcium 9.1 (8.6-10.3) mg/dL Calcium panel 08/31/17 Range/Units 01:09 Calcium 9.1 (8.6-10.3) mg/dL Pituitary panel 08/31/17 Range/Units 01:09 Sodium 136 (136-145) mEq/L Potassium 4.0 (3.5-5.1) mEq/L Chloride 103 (98-107) mEq/L Carbon Dioxide 27 (23-29) mEq/L BUN 21 (8-23) mg/dL Creatinine 1.14 (0.60-1.20) mg/dL Glucose 105 (70-105) mg/dL Calcium 9.1 (8.6-10.3) mg/dL Adrenal panel 08/31/17 Range/Units 01:09 Sodium 136 (136-145) mEq/L Potassium 4.0 (3.5-5.1) mEq/L Chloride 103 (98-107) mEq/L Carbon Dioxide 27 (23-29) mEq/L BUN 21 (8-23) mg/dL Creatinine 1.14 (0.60-1.20) mg/dL Glucose 105 (70-105) mg/dL Calcium 9.1 (8.6-10.3) mg/dL All other labs normal. - Attending Attestation I examined this patient and my medical decision-making was reviewed with the Resident Physician. I agree with the documented findings, disposition and treatment plan as described except to the extent set forth below. The patient is seen and evaluated with resident on rounds. The patient suffers from dementia. We were able to establish that she is not having any abdominal pain. Her examination is negative for Polanco sign or any abdominal discomfort. I personally reviewed the CAT scan images. She does have cholelithiasis. At this point I would classify this is asymptomatic cholelithiasis. I would recommend taking no action. Arnie Bennett MD FACS
[2017-08-31 01:29] LABS: Basophils % 0.4 %; Eosinophils # 0.2 K/mcL (0.0-0.6); Eosinophils % 2.3 %; Hematocrit 38.6 % (35.3-44.9); Hemoglobin 12.4 g/dL (11.5-15.4); Immature Granulocytes % 0.3 % (0-4); Lymphocytes # 1.7 K/mcL (0.6-4.6); Lymphocytes % 20.9 %; Mean Corpuscular HGB Conc 32.1 g/dL (31.6-35.5); Mean Corpuscular Hemoglobin 27.1 pg (28.0-33.3); Mean Corpuscular Volume 84.5 fL (83.0-100.0); Mean Platelet Volume 9.5 fL (9.4-12.4); Monocytes # 0.7 K/mcL (0.0-1.3); Monocytes % 8.3 %; Neutrophils # 5.4 K/mcL (1.6-8.9); Platelet Count 272 K/mcL (140-400); Red Blood Count 4.57 M/mcL (3.82-4.97); Red Cell Distribution Width 13.4 % (11.5-14.5); Segmented Neutrophils % 67.8 %
[2017-08-31 01:52] LABS: Calcium 9.1 mg/dL (8.6-10.3)
[2017-08-31] MEDS: *HR* Heparin 5,000 UNIT/ML VIAL SQ SCH (05:15)
[2017-08-31] MEDS: FLUoxetine HCl 10 MG CAPSULE PO SCH (09:44)
[2017-08-31] MEDS: amLODIPine 5 MG TABLET PO SCH (09:44)
--- NOTE | 2017-08-31 10:21 | Discharge Summary ---
- NOTES TO OUTPATIENT PROVIDER Notes to Outpatient Provider: Follow up with Surgery and Jack Setter Orders not resulted at time of discharge: Pending orders 08/31/17 10:17 Cancer Antigen 125 Routine Date of Encounter: 08/31/17 Time of Encounter: 10:20 - Discharge Diagnosis (1) Right upper quadrant pain Priority: Primary Status: Acute Assessment and Plan: Likely 2/[address] abdomen shows cholelithiasis. - We will order ultrasound liver to further identify gallbladder/bile duct abnormalities. Ultrasound showed cholelithiasis with no sonographic evidence of cholecystitis. Surgery plan for no acute intervention. Will start on ursodeoxycholic acid and have her f/u up outpatient with GI/ surgery (2) CKD (chronic kidney disease) Priority: Secondary Status: Acute Assessment and Plan: Creatinine level is at baseline Qualifiers: Chronic kidney disease stage: stage 3 (moderate) Qualified Code(s): N18.3 - Chronic kidney disease, stage 3 (moderate) (3) Adnexal cyst Priority: Secondary Status: Acute Assessment and Plan: Incidental finding by abdominal CT. Pelvic ultrasound showed right adnexal cyst and CA-125. Jack Setter recommend Ca 125 levels and will follow up outpatient (4) Renal cyst Priority: Secondary Status: Acute Assessment and Plan: Continue outpatient follow-up. No acute intervention (5) History of dementia Priority: Secondary Status: Acute Assessment and Plan: Continue home medications (6) DVT prophylaxis Priority: Secondary Status: Acute Assessment and Plan: Heparin subcutaneously (7) Chest pain Priority: Secondary Status: Acute Assessment and Plan: Patient has atypical chest pain. Likley musculoskeletal. Pain control PRN. Echo came back WNL Qualifiers: Chest pain type: unspecified Qualified Code(s): R07.9 - Chest pain, unspecified Hospital course: Ms. Marvin is a 77 year old female - Time Spent with Patient Total time spent providing and/or coordinating discharge services: - Discharge Medications Prescriptions: Ursodiol 250 mg PO BID #60 tablet Home Medications: Amlodipine [Norvasc] 5 mg PO QAM 02/12/15 [History] Donepezil [Aricept] 10 mg PO HS 03/21/15 [History] FLUoxetine HCl [Prozac] 10 mg PO QAM 03/21/15 [History] Oxybutynin [Ditropan] 5 mg PO DAILY 03/21/15 [History] Cetirizine HCl [Zyrtec] 10 mg PO PRN PRN 03/22/15 [History] Simvastatin [Zocor] 40 mg PO HS 03/22/15 [History] Melatonin/Pyridoxine HCl (B6) [Melatonin 3 mg Tablet] 1 each PO PRN PRN [History] Memantine HCl 10 mg PO BID 08/30/17 [History] Metoprolol [Lopressor] 25 mg PO DAILY 08/30/17 [History] Ursodiol 250 mg PO BID #60 tablet 08/31/17 [Rx] Allergies/Adverse Reactions: 3 Allergy/AdvReac Type Severity Reaction Status Date / Time Penicillins Allergy Hives Verified 08/30/17 12:36 Sulfa (Sulfonamide Allergy Hives Verified 08/30/17 12:36 Antibiotics) Date of admission: 08/30/17 16:07 Primary care physician: Sergei Anderson, - Constitutional Vitals: Temp Pulse Resp BP Pulse Ox 97.9 F 62 16 139/58 96 08/31/17 07:24 08/31/17 07:24 08/31/17 07:24 08/31/17 07:24 08/31/17 07:24 General appearance: Present: A&O X 0, no acute distress, answers questions appropriately - Head Head exam: Present: atraumatic, normocephalic - Eye Eye exam: Present: PERRL, conjuntiva pink, sclera anicteric Pupils: Present: PERRL - Neck Neck exam general surgery: Present: supple, trachea midline. Absent: lymphadenopathy - Respiratory Respiratory exam: Present: CTAB. Absent: accessory muscle use, rales, rhonchi, wheezes - Cardiovascular Cardiovascular exam: Present: RRR, +S1, +S2. Absent: diastolic murmur, gallop, rubs, systolic murmur - GI/Abdominal GI/Abdominal exam: Present: normal bowel sounds, soft, no peritoneal signs. Absent: distended, tenderness - Extremities Exam Extremities exam: Present: warm, radial pulses palpable and symmetrical. Absent : calf tenderness, cyanotic, pedal edema - Neurological Exam Neurological exam: Present: CN II-XII intact, oriented X3, no focal deficits. Absent: pronater drift, facial droop, speech deficit - Skin Skin exam: Present: dry, intact - Patient Status Disposition: Home, Self-Care Condition: Good - Discharge Instructions Additional Instructions: Follow-up appointments: If there is not an appointment listed below, please call your physician and schedule a follow-up appointment. If you have congestive heart failure and your symptoms return, make an appointment with your physician. Medication List: Carry an up to date list of medications you are taking at all time. We have given you an updated medication list including any new medications that you have been prescribed. Please provide that list to your primary provider Symptoms: If your condition changes or you experience any of the following symptoms, notify your physician immediately: Unusual or worsening pain, fever, persistent nausea and vomiting, bleeding, increase in swelling (especially in your legs), sudden weight gain, extreme dizziness, chest pain, increased drainage or redness from a wound or incision. Go to the emergency department if you experience a problem with breathing. Weights: If you have a history of swelling or shortness of breath, weigh yourself daily and notify your physician if you have a weight gain of two or more pounds in one day or 5 or more pounds in a week. If you experience any of the warning signs for stroke: Sudden numbness or weakness of the face, arm or leg; especially on one side of the body, sudden confusion, trouble speaking or understanding, sudden trouble seeing in one or both eyes, sudden trouble walking, dizziness, loss of balance or coordination, sudden sever headache with no cause; Call 911 or go to the emergency room. Stroke is a medical emergency. Some risk factors for stroke: Age, cigarette smoking, diabetes, excessive alcohol consumption, family history , high blood pressure, overweight, physical inactivity, prior stroke, heart attack, diagnosis of carotid artery stenosis or other artery disease. If you smoke, STOP: Smoking or tobacco use significantly increases your risk of heart and lung disease. Your chance of disease greatly increases if you continue to smoke. For more information, call the [employer] tobacco quit line for smoking cessation QUIT-NOW ( )
[2017-08-31 11:21] VITALS: BP 113/67
--- NOTE | 2017-08-31 16:54 | Electrocardiograph Report ---
[address] [place], [place] [address] Test Date: 2017-08-29 Pat Name: Kay Marvin Department: 102 Room: [facility] Gender: F Call Center Support Consultant: : 1940 Requested By: Brea Chung Order Number: [id number] Reading MD: Pati Lowery Measurements Intervals [place] Rate: 89 P: 43 HI: 138 QRS: 28 QRSD: 85 T: 52 QT: 347 QTc: 394 Interpretive Statements SINUS RHYTHM WITH ECTOPIC PREMATURE COMPLEXES MODERATE ST DEPRESSION [0.05+ mV ST DEPRESSION] Electronically Signed On 08-31-2017 16:52:40 EDT by Pati Lowery
== END 2017-08-31 14:10 | disposition home or self-care (01) | DRG 446 ==
LOC: EMEROO 18:33 → 3NENU 18:33 → SUATTDRO 08-30 16:07
PROVIDERS: ADMIT Internal Medicine; ATTEND Student in an Organized Health Care Education/Training Program

== ENCOUNTER 2018-10-12 15:02 | Inpatient (IN) ==
--- NOTE | 2018-10-12 15:12 | Emergency Department Note ---
Disposition Clinical Impression: Dehydration, UTI (urinary tract infection), Frail elderly, Acute kidney injury, Dementia, Weakness, Confusion, Unable to walk Disposition: Admitted As Inpatient Referrals: Sergei Anderson DO [Primary Care Provider] - Forms: Work/School Release, ED Satisfaction Letter Time of Disposition: 19:59 General Adult HPI - General Chief complaint: ED Weakness Stated complaint: generalized weakness; sleeping A LOT! Time Seen by Provider: 10/12/18 15:10 Source: patient, family Limitations: no limitations - History of Present Illness HPI Narrative: 78-year-old female with a history of dementia was brought in by her daughter from home regarding weakness and confusion which has been present and progress scotty over the last 2 days. There is no history of chest pain shortness of breath abdominal pain vomiting or diarrhea. The patient's daughter reports the patient was so weak today that she did not want to eat and she had to have assistance getting her into the car. There is no history of fall or injury. No headache or convulsion no slurred speech arm or leg weakness or numbness or facial drooping. The patient is not known to be diabetic and has no history of hypothyroidism. She was recently evaluated and diagnosed with COPD and started taking some inhalers last week. She does not describe a cough. There is no history of leg swelling or pain. No flank pain or urinary symptoms. No skin rashes or fevers. Generalized weakness and progressive confusion is reported. The patient's daughter reports she had scheduled an appointment with her primary care provider at 4:15 PM today but the patient was so weak she couldn't walk so she called the primary care physician's office and they recommended she go to the emergency department. Pain Scale: 0 - Related Data Home Medications Medication Instructions Recorded Confirmed Amlodipine [Norvasc] 5 mg PO QAM 02/12/15 08/30/17 Donepezil [Aricept] 10 mg PO HS 03/21/15 08/30/17 FLUoxetine HCl [Prozac] 10 mg PO QAM 03/21/15 08/30/17 Oxybutynin [Ditropan] 5 mg PO DAILY 03/21/15 08/30/17 Cetirizine HCl [Zyrtec] 10 mg PO PRN PRN 03/22/15 08/30/17 Simvastatin [Zocor] 40 mg PO HS 03/22/15 08/30/17 Melatonin/Pyridoxine HCl (B6) 1 each PO PRN PRN 08/30/17 08/30/17 [Melatonin 3 mg Tablet] Memantine HCl 10 mg PO BID 08/30/17 08/30/17 Metoprolol [Lopressor] 25 mg PO DAILY 08/30/17 08/30/17 Previous Rx's Medication Instructions Recorded Ursodiol 250 mg PO BID #60 tablet 08/31/17 Clindamycin HCl 300 mg PO QID #28 capsule 10/22/17 Albuterol Sulfate [Albuterol 1 puff IH Q4HR PRN #1 hfa.aer.ad 10/03/18 Inhaler] predniSONE [Prednisone] 50 mg PO DAILY #5 tablet 10/03/18 Allergies Allergy/AdvReac Type Severity Reaction Status Date / Time Penicillins Allergy Hives Verified 05/15/18 09:31 Sulfa (Sulfonamide Allergy Hives Verified 05/15/18 09:31 Antibiotics) All systems ED: reviewed and negative except as stated. Past Medical History - Past Medical History Medical history: Reports: dementia, hyperlipidemia, hypertension Surgical history: Reports: appendectomy, , hysterectomy, orthopedic, other Psychiatric history: Reports: depression - Social History Smoking Status: Former smoker Smokeless Tobacco Status: No Alcohol use: Reports: none Drug use: Reports: none Physical Exam - General Limitations: other (The patient follows basic commands without difficulty and answers most questions appropriately but is somewhat confused.) General appearance: alert, in no apparent distress - Head Head exam: atraumatic, normocephalic, normal inspection - ENT ENT exam: normal exam, normal oropharynx, mucous membranes moist, TM's normal bilaterally, normal external ear exam - Neck Neck exam: Present: normal inspection, full ROM, trachea midline. Absent: meningismus - Chest Chest inspection: Present: symmetric chest wall rise. Absent: tenderness - Respiratory Respiratory exam: Present: normal lung sounds bilaterally. Absent: respiratory distress, prolonged expiratory phase - Cardiovascular Cardiovascular exam: Present: regular rate, normal rhythm, normal heart sounds - Abdominal Exam Abdominal exam: Present: soft, Non-Tender, normal bowel sounds. Absent: tenderness, distention, guarding, rebound, rigidity - Extremities Exam Extremities exam: Present: normal inspection, full ROM, normal capillary refill. Absent: tenderness, pedal edema, joint swelling, calf tenderness - Expanded Lower Extremity Exam Neurovascular/Tendon exam: Present: normal capillary refill. Absent: sensory deficit, extremity cold to touch, pallor - Back Exam Back exam: Present: normal inspection, full ROM. Absent: tenderness, CVA tenderness (R), CVA tenderness (L), vertebral tenderness - Neurological Exam Neurological exam: Present: alert, CN II-XII intact. Absent: motor sensory deficit - Psychiatric Psychiatric exam: Present: normal affect, normal mood - Skin Skin exam: Present: warm, dry, intact, normal color Course Vital Signs Temperature 97.2 F L 10/12/18 15:02 Pulse Rate 86 10/12/18 15:02 Respiratory Rate 18 10/12/18 15:02 Blood Pressure 131/64 10/12/18 15:02 O2 Sat by Pulse Oximetry 96 10/12/18 15:02 Temperature 97.2 F L 10/12/18 15:02 Pulse Rate 81 10/12/18 18:06 Respiratory Rate 16 10/12/18 18:06 Blood Pressure 125/91 10/12/18 18:06 O2 Sat by Pulse Oximetry 97 10/12/18 18:06 Oxygen Delivery Oxygen Delivery Room Air Medical Decision Making - MDM Narrative Medical decision making narrative: The patient was brought in by her daughter, she required assistance to get the patient into the vehicle. Normally the patient is ambulatory. She describes progressive confusion and weakness. In the emergency department the patient was unable to get to the bathroom by herself she was unable to stand well and required nursing and caregiver assistance to make it to the bathroom. The patient numbness raise no focal defects. CT head negative. Laboratory studies indicate UTI and dehydration. Nitrofurantoin given in the ED by mouth. IV ac cess was established and IV fluids were given. The patient does not appear to be septic. Given the patient's age, dehydration, inability to ambulate normally, UTI, and confusion, I thought it would be appropriate to admit the patient to the hospital. The patient and family are agreeable. I discussed the case with the hospitalist on-call who has accepted the patient to their care. - Lab Data Lab results reviewed: Yes I reviewed the patient's lab results. Result diagrams: 10/12/18 15:36 10/12/18 15:38 Lab Results 06/11/19 06/11/19 06/11/19 Range/Units 15:36 15:36 15:38 WBC 9.9 (4.3-11.1) K/mcL RBC 4.59 (3.82-4.97) M/mcL Hgb 12.8 (11.5-15.4) g/dL Hct 40.3 (35.3-44.9) % MCV 87.8 (83.0-100.0) fL MCH 27.9 L (28.0-33.3) pg MCHC 31.8 (31.6-35.5) g/dL RDW 13.3 (11.5-14.5) % Plt Count 323 (140-400) K/mcL MPV 9.4 (9.4-12.4) fL Immature Gran % 0.4 (0-4) % Seg Neutrophils % 68.0 % Lymphocytes % 18.8 % Monocytes % 7.6 % Eosinophils % 4.9 % Basophils % 0.3 % Neutrophils # 6.7 (1.6-8.9) K/mcL Lymphocytes # 1.9 (0.6-4.6) K/mcL Monocytes # 0.8 (0.0-1.3) K/mcL Eosinophils # 0.5 (0.0-0.6) K/mcL Basophils # 0.0 (0.0-0.2) K/mcL PT (9.4-12.1) Seconds INR APTT (26.0-36.0) Seconds Sodium 138 (136-145) mEq/L Potassium 4.0 (3.5-5.1) mEq/L Chloride 102 (98-107) mEq/L Carbon Dioxide 30 H (23-29) mEq/L BUN 30 H (8-23) mg/dL Creatinine 1.37 H (0.60-1.20) mg/dL Est GFR ( Amer) 45 L (> 60) Est GFR (Non-Af Amer) 37 L (> 60) BUN/Creatinine Ratio 22 (6-26) Glucose 91 (70-105) mg/dL Calculated Osmolality 292 (280-300) Lactic Acid (0.5-2.2) mmol/L Calcium 9.3 (8.6-10.3) mg/dL Magnesium 2.3 (1.6-2.6) mg/dL Total Bilirubin 0.3 (0.3-1.0) mg/dL AST 15 (13-39) Units/L ALT 13 (7-52) Units/L Alkaline Phosphatase 108 H (34-104) Units/L Ammonia 38 (16-53) mcmol/L Creatine Kinase 93 (30-223) Units/L Troponin I < 0.03 (< 0.04) ng/mL C-Reactive Protein 9 (Less than 10) mg/L Serum Total Protein 6.9 (6.4-8.9) g/dL Albumin 4.0 (3.5-5.7) g/dL Globulin 2.9 (2.4-3.5) g/dL Albumin/Globulin Ratio 1.4 (1.1-2.2) TSH 2.313 (0.340-5.600) mcIU/mL Free T4 0.90 (0.70-2.00) ng/dl Urine Color (Yellow) Urine Clarity (Clear) Urine pH (5.0-8.0) pH Units Ur Specific [place] (1.010-1.025) Urine Protein (Neg-Trace) mg/dL Urine Glucose (UA) (Normal) mg/dL Urine Ketones (Negative) mg/dL Urine Blood (Negative) Urine Nitrite (Negative) Urine Bilirubin (Negative) Urine Urobilinogen (Normal) mg/dL Ur Leukocyte Esterase (Negative) Urine Microscopic RBC (0-3) per hpf Urine Microscopic WBC (0-3) per hpf Ur Squamous Epith Cells (None-Few) per lpf Urine Bacteria (None-Few) per hpf Hyaline Casts (None-Few) per lpf Ur Culture Indicated? (NO) 10/12/18 10/12/18 10/12/18 Range/Units 15:38 15:38 17:07 WBC (4.3-11.1) K/mcL RBC (3.82-4.97) M/mcL Hgb (11.5-15.4) g/dL Hct (35.3-44.9) % MCV (83.0-100.0) fL MCH (28.0-33.3) pg MCHC (31.6-35.5) g/dL RDW (11.5-14.5) % Plt Count (140-400) K/mcL MPV (9.4-12.4) fL Immature Gran % (0-4) % Seg Neutrophils % % Lymphocytes % % Monocytes % % Eosinophils % % Basophils % % Neutrophils # (1.6-8.9) K/mcL Lymphocytes # (0.6-4.6) K/mcL Monocytes # (0.0-1.3) K/mcL Eosinophils # (0.0-0.6) K/mcL Basophils # (0.0-0.2) K/mcL PT 11.0 (9.4-12.1) Seconds INR 1.0 APTT 41.5 H (26.0-36.0) Seconds Sodium (136-145) mEq/L Potassium (3.5-5.1) mEq/L Chloride (98-107) mEq/L Carbon Dioxide (23-29) mEq/L BUN (8-23) mg/dL Creatinine (0.60-1.20) mg/dL Est GFR ( Amer) (> 60) Est GFR (Non-Af Amer) (> 60) BUN/Creatinine Ratio (6-26) Glucose (70-105) mg/dL Calculated Osmolality (280-300) Lactic Acid 0.8 (0.5-2.2) mmol/L Calcium (8.6-10.3) mg/dL Magnesium (1.6-2.6) mg/dL Total Bilirubin (0.3-1.0) mg/dL AST (13-39) Units/L ALT (7-52) Units/L Alkaline Phosphatase (34-104) Units/L Ammonia (16-53) mcmol/L Creatine Kinase (30-223) Units/L Troponin I (< 0.04) ng/mL C-Reactive Protein (Less than 10) mg/L Serum Total Protein (6.4-8.9) g/dL Albumin (3.5-5.7) g/dL Globulin (2.4-3.5) g/dL Albumin/Globulin Ratio (1.1-2.2) TSH (0.340-5.600) mcIU/mL Free T4 (0.70-2.00) ng/dl Urine Color Yellow (Yellow) Urine Clarity Clear (Clear) Urine pH 6.0 (5.0-8.0) pH Units Ur Specific [place] 1.027 H (1.010-1.025) Urine Protein Negative (Neg-Trace) mg/dL Urine Glucose (UA) Normal (Normal) mg/dL Urine Ketones Negative (Negative) mg/dL Urine Blood Negative (Negative) Urine Nitrite Negative (Negative) Urine Bilirubin Negative (Negative) Urine Urobilinogen Normal (Normal) mg/dL Ur Leukocyte Esterase Moderate H (Negative) Urine Microscopic RBC 3-5 H (0-3) per hpf Urine Microscopic WBC 30-50 H (0-3) per hpf Ur Squamous Epith Cells Many H (None-Few) per lpf Urine Bacteria None Seen (None-Few) per hpf Hyaline Casts None Seen (None-Few) per lpf Ur Culture Indicated? YES A (NO) - Radiology Data Radiology results reviewed: Yes I reviewed the patient's radiology results. - EKG Data EKG #1 EKG attestation: Yes I reviewed and interpreted this EKG. EKG shows normal: sinus rhythm Rate: normal Rhythm: NSR P waves: LAE Interpretation: no acute changes
[2018-10-12 16:01] LABS: Basophils % 0.3 %; Eosinophils # 0.5 K/mcL (0.0-0.6); Eosinophils % 4.9 %; Hematocrit 40.3 % (35.3-44.9); Hemoglobin 12.8 g/dL (11.5-15.4); Immature Granulocytes % 0.4 % (0-4); Lymphocytes # 1.9 K/mcL (0.6-4.6); Lymphocytes % 18.8 %; Mean Corpuscular HGB Conc 31.8 g/dL (31.6-35.5); Mean Corpuscular Hemoglobin 27.9 pg (28.0-33.3); Mean Corpuscular Volume 87.8 fL (83.0-100.0); Mean Platelet Volume 9.4 fL (9.4-12.4); Monocytes # 0.8 K/mcL (0.0-1.3); Monocytes % 7.6 %; Neutrophils # 6.7 K/mcL (1.6-8.9); Platelet Count 323 K/mcL (140-400); Red Blood Count 4.59 M/mcL (3.82-4.97); Red Cell Distribution Width 13.3 % (11.5-14.5); White Blood Count 9.9 K/mcL (4.3-11.1)
[2018-10-12 16:15] LABS: Activated Partial Thrombo Time 41.5 Seconds (26.0-36.0)
[2018-10-12 16:24] LABS: Alanine Aminotransferase 13 Units/L (7-52); Albumin/Globulin Ratio 1.4 (1.1-2.2); Alkaline Phosphatase 108 Units/L (34-104); Aspartate Amino Transferase 15 Units/L (13-39); BUN/Creatinine Ratio 22 (6-26); Bilirubin,Total 0.3 mg/dL (0.3-1.0); Blood Urea Nitrogen 30 mg/dL (8-23); C-Reactive Protein 9 mg/L (Less than 10); Calcium 9.3 mg/dL (8.6-10.3); Carbon Dioxide 30 mEq/L (23-29); Chloride 102 mEq/L (98-107); Creatine Kinase 93 Units/L (30-223); Globulin 2.9 g/dL (2.4-3.5); Glucose 91 mg/dL (70-105); Magnesium 2.3 mg/dL (1.6-2.6); Osmolality,Calculated 292 (280-300); Sodium 138 mEq/L (136-145); Total Protein 6.9 g/dL (6.4-8.9); Troponin I < 0.03 ng/mL (< 0.04); eGFR For African Americans 45 (> 60); eGFR For Non-African Americans 37 (> 60)
[2018-10-12 16:39] LABS: Thyroid Stimulating Hormone 2.313 mcIU/mL (0.340-5.600)
[2018-10-12] MEDS ORDERED: 0.9 % Sodium Chloride 1,000 ML IVC ONE (17:23)
[2018-10-12 17:24] LABS: Bilirubin,Urine Negative (Negative); Blood,Urine Negative (Negative); Clarity,Urine Clear (Clear); Color,Urine Yellow (Yellow); Glucose,Urine (UA) Normal (Normal); Ketones,Urine Negative (Negative); Leukocyte Esterase,Urine Moderate (Negative); Nitrite,Urine Negative (Negative); Protein,Urine Negative (Neg-Trace); Specific Gravity,Urine 1.027 (1.010-1.025); Urobilinogen,Urine Normal (Normal)
[2018-10-12 17:27] LABS: Bacteria,Urine None Seen per hpf (None-Few); Hyaline Casts,Urine None Seen per lpf (None-Few); Squamous Epithelial Cell,Urine Many per lpf (None-Few); WBC,Urine 30-50 per hpf (0-3)
[2018-10-12] MEDS ORDERED: Naloxone 0.4 MG/ML INJ IVP PRN (20:13)
[2018-10-12] MEDS ORDERED: Acetaminophen 325 MG TABLET PO PRN (20:13)
[2018-10-12] MEDS ORDERED: Albuterol 2.5 MG/3 ML NEBULIZER IH PRN (20:17)
--- NOTE | 2018-10-12 20:23 | Internal Med History&Physical ---
Date of Encounter: 10/12/18 Time of Encounter: 20:20 Internal Medicine - H&P: HPI Chief complaint: Weakness Admitted From: Emergency Dept Plans for Post Hospital Care: Home History of present illness: Ms. Marvin is a 78 year old female with history of Alzheimer's, hypertension presents with progressive weakness. The patient has underlying dementia and lives with her daughter and the history is provided by the patient's daughter. Patient's daughter states that the patient has been progressively weak over the last several days. It got to the point today that she required several people to help get her up out of bed and up out of the chair. The daughter also states the patient has been more lethargic over the last several days as well as decreased responsiveness. States this has happened previously when she has been dehydrated. She states she has improved since being in the emergency department and receiving IV fluids. She also reports constipation over the last several months. She denies any changes in her urinary output, dysuria, abdominal pain, nausea, vomiting, fever, chills, chest pain, shortness of breath. Discussed with the patient's daughter who wishes that the patient be full code. Past Med Surg Social Fam HX - Past Medical History Medical history: dementia, hyperlipidemia, hypertension Additional medical history: alzheimer's Psychiatric history: depression - Past Surgical History Surgical History: appendectomy, , hysterectomy, orthopedic, other Additional surgical history: bilateral foot surgery. exploratory on abdomen - Social History Smoking Status: Former smoker Smokeless Tobacco Status: No Alcohol use: none Drug use: none - Family History Mother Adopted: No Family Member Ethnicity: Non- Living Status: Hx Family Cardiac Disorders: Yes Hx Family Respiratory Disorders: Yes (COPD) Hx Family Cancer: No Hx Family GI Disorders: No Hx Family Endocrine Disorder: No Hx Family Neuromuscular Disorders: No Hx Family Neurologic Disorders: No Hx Family HEENT Disorders: No Hx Family Autoimmune Disorders: No Internal Medicine - H&P: Meds Amlodipine [Norvasc] 5 mg PO QAM 02/12/15 [History] Donepezil [Aricept] 10 mg PO HS 03/21/15 [History] FLUoxetine HCl [Prozac] 10 mg PO QAM 03/21/15 [History] Oxybutynin [Ditropan] 5 mg PO DAILY 03/21/15 [History] Cetirizine HCl [Zyrtec] 10 mg PO PRN PRN 03/22/15 [History] Simvastatin [Zocor] 40 mg PO HS 03/22/15 [History] Melatonin/Pyridoxine HCl (B6) [Melatonin 3 mg Tablet] 1 each PO PRN PRN 08/30/17 [History] Memantine HCl 10 mg PO BID 08/30/17 [History] Metoprolol [Lopressor] 25 mg PO DAILY 08/30/17 [History] Ursodiol 250 mg PO BID #60 tablet 08/31/17 [Rx] Clindamycin HCl 300 mg PO QID #28 capsule 10/22/17 [Rx] Albuterol Sulfate [Albuterol Inhaler] 1 puff IH Q4HR PRN #1 hfa.aer.ad 10/03/18 [Rx] predniSONE [Prednisone] 50 mg PO DAILY #5 tablet 10/03/18 [Rx] Allergy/AdvReac Type Severity Reaction Status Date / Time Penicillins Allergy Hives Verified 05/15/18 09:31 Sulfa (Sulfonamide Allergy Hives Verified 05/15/18 09:31 Antibiotics) ROS unobtainable: due to mental status (Patient has baseline Alzheimer's and cannot participate in review of systems, limited review of systems was obtained from the daughter and is in history of present illness.) All Systems PM: A 10-system review of systems was performed and is negative for pertinent f indings except as documented above in the HPI. - Constitutional Vitals: Temp Pulse Resp BP Pulse Ox 97.2 F L 81 16 125/91 97 10/12/18 15:02 10/12/18 18:06 10/12/18 18:06 10/12/18 18:06 10/12/18 18:06 General appearance: Present: A&O X 2, pleasant, no acute distress Exam: . - Head Head exam: Present: atraumatic, normal inspection, normocephalic - Eye Eye exam: Present: EOMI, PERRL - ENT ENT exam: Present: mucous membranes dry, normal oropharynx - Neck Neck exam general surgery: Present: full ROM. Absent: tenderness - Respiratory Respiratory exam: Present: CTAB. Absent: rales, rhonchi, wheezes - Cardiovascular Cardiovascular exam: Present: RRR. Absent: gallop, rubs, systolic murmur - GI/Abdominal GI/Abdominal exam: Present: hypoactive bowel sounds, soft, no peritoneal signs. Absent: distended, tenderness - Extremities Exam Extremities exam: Present: normal inspection, warm. Absent: pedal edema, tenderness - Neurological Exam Neurological exam: Present: alert, CN II-XII intact, no focal deficits. Absent: oriented X3, speech deficit - Psychiatric Psychiatric exam: Present: normal affect, normal mood - Skin Skin exam: Present: dry, intact, warm Internal Med - H&P Results - Labs CBC & Chem 7: 10/12/18 15:36 10/12/18 15:38 Labs: Short CBC 10/12/18 Range/Units 15:36 WBC 9.9 (4.3-11.1) K/mcL Hgb 12.8 (11.5-15.4) g/dL Hct 40.3 (35.3-44.9) % Plt Count 323 (140-400) K/mcL Neutrophils # 6.7 (1.6-8.9) K/mcL BMP 10/12/18 15:38 Sodium 138 Potassium 4.0 Chloride 102 Carbon Dioxide 30 H BUN 30 H Creatinine 1.37 H Glucose 91 Calcium 9.3 Cardiac Enzymes 10/12/18 Range/Units 15:38 Troponin I < 0.03 (< 0.04) ng/mL Liver Function 10/12/18 Range/Units 15:38 Total Bilirubin 0.3 (0.3-1.0) mg/dL AST 15 (13-39) Units/L ALT 13 (7-52) Units/L Alkaline Phosphatase 108 H (34-104) Units/L Albumin 4.0 (3.5-5.7) g/dL Urine 10/12/18 Range/Units 17:07 Urine Color Yellow (Yellow) Urine Clarity Clear (Clear) Urine pH 6.0 (5.0-8.0) pH Units Ur Specific [place] 1.027 H (1.010-1.025) Urine Protein Negative (Neg-Trace) mg/dL Urine Glucose (UA) Normal (Normal) mg/dL - Impressions ITS Impressions Chest X-Ray 10/12/18 15:13 IMPRESSION: No acute abnormality. D/ / Alejo Jimenez MD / Alejo Jimenez MD Interpreting Provider: Alejo Jimenez MD Head CT 10/12/18 15:13 IMPRESSION: No acute intracranial abnormality. Mild generalized cerebral atrophy and chronic small vessel white matter ischemic changes. D/ / Fortino Gates MD / Fortino Gates MD Interpreting Provider: Fortino Gates MD - Assessment and Plan (1) Weakness Current Visit: Yes Status: Acute Assessment and plan: Patient presents with global weakness. No focal deficits appreciated. Head CT negative for any acute changes. Likely due to underlying dehydration and urinary tract infection. Continue IV fluid hydration, plan for PT/OT consult in the morning. (2) UTI (urinary tract infection) Current Visit: Yes Status: Acute Assessment and plan: Patient has underlying dementia and this has profuse weakness with lethargy that has improved. UA positive for moderate leukocyte esterase. Given the patient's weakness with underlying dementia we will treat for UTI. Patient received a dose of Macrobid in the ER, we will treat with Rocephin 2 g every 24 hours. Await final urine culture and sensitivity report. Qualifiers: Urinary tract infection type: acute cystitis Hematuria presence: without hematuria Qualified Code(s): N30.00 - Acute cystitis without hematuria (3) GREGORY (acute kidney injury) Current Visit: Yes Status: Acute Assessment and plan: Patient has acute kidney injury on CKD stage III with mildly elevated creatinine at 1.37 with a GFR 37, baseline GFR appears to be in the high 40s. Likely due to dehydration. UA shows no protein or blood. Continue IV fluid hydration with normal saline at 125 mL per hour. Recheck renal function in the morning. If renal function not improving consider retroperitoneal ultrasound is for hydron ephrosis. (4) CKD (chronic kidney disease), stage III Current Visit: No Status: Acute Assessment and plan: Plan as above (5) Dementia Current Visit: Yes Status: Acute Assessment and plan: Patient has underlying Alzheimer's disease that is fairly severe per the daughter's report. Patient had been lethargic but alertness has improved per the daughter's report. Continue all medication. Qualifiers: Dementia type: Alzheimer's disease Alzheimer's disease onset: unspecified onset Dementia behavioral disturbance: without behavioral disturbance Qualified Code(s): G30.9 - Alzheimer's disease, unspecified; F02.80 - Dementia in other diseases classified elsewhere without behavioral disturbance (6) Hypertension Current Visit: Yes Status: Acute Assessment and plan: Blood pressure stable. Continue home medication. Qualifiers: Hypertension type: essential hypertension Qualified Code(s): I10 - Essential (primary) hypertension (7) DVT prophylaxis Current Visit: Yes Status: Acute Assessment and plan: Heparin 5000 units subcutaneous twice a day. - Time Spent With Patient Total time spent is greater than 50% in coordination of care (as documented) at patient's floor/unit and/or counseling patient:
[2018-10-12] MEDS ORDERED: cefTRIAXone 2,000 MG in Water for inj. (sterile) 20 ML 20 ML IVPB SCH (21:00)
[2018-10-12] MEDS ORDERED: traZODone 50 MG TABLET PO SCH (21:00)
[2018-10-12] MEDS: Sennosides/Docusate Sodium TABLET PO SCH (21:39)
[2018-10-12] MEDS: 0.9 % Sodium Chloride 1,000 ML IVC SCH (21:47)
[2018-10-13 05:27] LABS: Basophils % 0.4 %; Eosinophils # 0.4 K/mcL (0.0-0.6); Eosinophils % 5.7 %; Hematocrit 37.4 % (35.3-44.9); Hemoglobin 11.6 g/dL (11.5-15.4); Immature Granulocytes % 0.4 % (0-4); Lymphocytes # 1.8 K/mcL (0.6-4.6); Lymphocytes % 25.5 %; Mean Corpuscular Hemoglobin 27.8 pg (28.0-33.3); Mean Corpuscular Volume 89.7 fL (83.0-100.0); Mean Platelet Volume 9.5 fL (9.4-12.4); Monocytes # 0.6 K/mcL (0.0-1.3); Neutrophils # 4.3 K/mcL (1.6-8.9); Platelet Count 271 K/mcL (140-400); Red Blood Count 4.17 M/mcL (3.82-4.97); Red Cell Distribution Width 13.2 % (11.5-14.5); White Blood Count 7.2 K/mcL (4.3-11.1)
[2018-10-13] MEDS: 0.9 % Sodium Chloride 1,000 ML IVC SCH ×2 (05:40→20:43)
[2018-10-13] MEDS: *HR* Heparin 5,000 UNIT/ML VIAL SQ SCH ×2 (05:41→20:44)
[2018-10-13 05:43] LABS: BUN/Creatinine Ratio 20 (6-26); Blood Urea Nitrogen 21 mg/dL (8-23); Calcium 8.5 mg/dL (8.6-10.3); Carbon Dioxide 27 mEq/L (23-29); Chloride 109 mEq/L (98-107); Glucose 98 mg/dL (70-105); Magnesium 2.1 mg/dL (1.6-2.6); Osmolality,Calculated 295 (280-300); Potassium 4.1 mEq/L (3.5-5.1); Sodium 141 mEq/L (136-145); eGFR For African Americans > 60 (> 60); eGFR For Non-African Americans 52 (> 60)
--- NOTE | 2018-10-13 08:51 | Internal Med Progress Note ---
Hospitalist Progress Note - Encounter Date of Encounter: 10/13/18 Time of Encounter: 08:51 - Subjective Interval History: Patient seen and examined this morning at bedside. No acute overnight events. Denies any fevers chills nausea vomiting or diarrhea. Denies any abdominal pain bowel or bladder complaints. Appetite improved. - Exam Vitals: Temp Pulse Resp BP Pulse Ox 97.7 F 74 16 121/62 100 10/13/18 06:46 10/13/18 06:46 10/13/18 06:46 10/13/18 06:46 10/13/18 06:46 Exam: General: In no acute distress. Respiratory exam: CTAB. no accessory muscle use, rales, rhonchi, wheezes Cardiovascular exam: RRR, +S1, +S2. no murmur, gallop, rubs. GI/Abdominal exam: Non-tender, Non-distended, normal bowel sounds, soft, no peritoneal signs. Extremities exam: no pedal edema, pulses palpable in b/l lower extremities. no calf tenderness Neurological exam: CN II-XII intact, AO X1, no focal deficits. Skin exam: No skin rash - Assessment and Plan (1) GREGORY (acute kidney injury) Current Visit: Yes Status: Acute (2) CKD (chronic kidney disease), stage III Current Visit: No Status: Acute (3) UTI (urinary tract infection) Current Visit: Yes Status: Acute (4) Dementia Current Visit: Yes Status: Acute (5) Weakness Current Visit: Yes Status: Acute (6) DVT prophylaxis Current Visit: Yes Status: Acute (7) Hypertension Current Visit: Yes Status: Acute - Summary of Assessment and Plan Summary of Assessment and Plan: Assessment Acute UTI Weakness GREGORY on CKD3 Chronic Dementia HTN Plan - c/w empiric ceftriaxone. F/u blood and urine cx. NGTD - decrease IVF to 70. Start diet as tolerated. - S.cr improving with ivf. weakness possibly from dehydration. - f/u PT/OT - heparin for DVT prophylaxis - Time Spent with Patient Total time spent is greater than 50% in coordination of care (as documented) at patient's floor/unit and/or counseling patient: Internal Medicine: Result - Labs CBC & Chem 7: 10/13/18 04:34 10/13/18 04:34 Labs: Short CBC 10/12/18 10/13/18 Range/Units 15:36 04:34 WBC 9.9 7.2 (4.3-11.1) K/mcL Hgb 12.8 11.6 (11.5-15.4) g/dL Hct 40.3 37.4 (35.3-44.9) % Plt Count 323 271 (140-400) K/mcL Neutrophils # 6.7 4.3 (1.6-8.9) K/mcL BMP 10/12/18 10/13/18 15:38 04:34 Sodium 138 141 Potassium 4.0 4.1 Chloride 102 109 H Carbon Dioxide 30 H 27 BUN 30 H 21 Creatinine 1.37 H 1.03 Glucose 91 98 Calcium 9.3 8.5 L Cardiac Enzymes 10/12/18 Range/Units 15:38 Troponin I < 0.03 (< 0.04) ng/mL Liver Function 10/12/18 Range/Units 15:38 Total Bilirubin 0.3 (0.3-1.0) mg/dL AST 15 (13-39) Units/L ALT 13 (7-52) Units/L Alkaline Phosphatase 108 H (34-104) Units/L Albumin 4.0 (3.5-5.7) g/dL Urine 10/12/18 Range/Units 17:07 Urine Color Yellow (Yellow) Urine Clarity Clear (Clear) Urine pH 6.0 (5.0-8.0) pH Units Ur Specific [place] 1.027 H (1.010-1.025) Urine Protein Negative (Neg-Trace) mg/dL Urine Glucose (UA) Normal (Normal) mg/dL - ABG Interpretation ABG results: PT/INR, D-dimer PT 11.0 Seconds (9.4-12.1) 10/12/18 15:38 - Impressions Impressions Chest X-Ray 10/12/18 15:13 IMPRESSION: No acute abnormality. D/ / Alejo Jimenez MD / Alejo Jimenez MD Interpreting Provider: Alejo Jimenez MD Head CT 10/12/18 15:13 IMPRESSION: No acute intracranial abnormality. Mild generalized cerebral atrophy and chronic small vessel white matter ischemic changes. D/ / Fortino Gates MD / Fortino Gates MD Interpreting Provider: Fortino Gates MD Consult Discharge Plan - Plan Referrals: Sergei Anderson DO [Primary Care Provider] - (3) UTI (urinary tract infection) Qualifiers: Urinary tract infection type: acute cystitis Hematuria presence: without hematuria Qualified Code(s): N30.00 - Acute cystitis without hematuria (4) Dementia Qualifiers: Dementia type: Alzheimer's disease Alzheimer's disease onset: unspecified onset Dementia behavioral disturbance: without behavioral disturbance Qualified Code(s): G30.9 - Alzheimer's disease, unspecified; F02.80 - Dementia in other diseases classified elsewhere without behavioral disturbance (7) Hypertension Qualifiers: Hypertension type: essential hypertension Qualified Code(s): I10 - Essential (primary) hypertension
[2018-10-13] MEDS: Sennosides/Docusate Sodium TABLET PO SCH ×2 (09:56→20:41)
[2018-10-13] MEDS ORDERED: cefTRIAXone 1,000 MG in Water for inj. (sterile) 20 ML 10 ML IVP SCH (20:00)
[2018-10-13] MEDS: traZODone 50 MG TABLET PO SCH (20:41)
[2018-10-14] MEDS: Melatonin 3 MG TABLET PO PRN ×2 (01:52→20:43)
[2018-10-14] MEDS: *HR* Heparin 5,000 UNIT/ML VIAL SQ SCH ×2 (05:13→18:57)
[2018-10-14] MEDS: Sennosides/Docusate Sodium TABLET PO SCH ×2 (09:56→20:43)
[2018-10-14] MEDS: amLODIPine 5 MG TABLET PO SCH (09:57)
--- NOTE | 2018-10-14 11:13 | Internal Med Progress Note ---
Hospitalist Progress Note - Encounter Date of Encounter: 10/14/18 Time of Encounter: 11:13 - Subjective Interval History: Patient seen and examined this morning has had. Acute overnight events. Denies new complaints. Patient was slightly confused on and off, alert and oriented x1. Denies any pain. Denies any urinary or bowel complaints. - Exam Vitals: Temp Pulse Resp BP Pulse Ox 98.2 F 96 16 128/83 96 10/14/18 09:46 10/14/18 09:46 10/14/18 09:46 10/14/18 09:46 10/14/18 09:46 Exam: General: In no acute distress. Respiratory exam: CTAB. no accessory muscle use, rales, rhonchi, wheezes Cardiovascular exam: RRR, +S1, +S2. no murmur, gallop, rubs. GI/Abdominal exam: Non-tender, Non-distended, normal bowel sounds, soft, no peritoneal signs. Extremities exam: no pedal edema, pulses palpable in b/l lower extremities. no calf tenderness Neurological exam: CN II-XII intact, AO X1, no focal deficits. - Assessment and Plan (1) GREGORY (acute kidney injury) Current Visit: Yes Status: Acute (2) CKD (chronic kidney disease), stage III Current Visit: No Status: Acute (3) UTI (urinary tract infection) Current Visit: Yes Status: Acute (4) Dementia Current Visit: Yes Status: Acute (5) Weakness Current Visit: Yes Status: Acute (6) DVT prophylaxis Current Visit: Yes Status: Acute (7) Hypertension Current Visit: Yes Status: Acute - Summary of Assessment and Plan Summary of Assessment and Plan: Assessment Acute UTI Weakness GREGORY on CKD3-resolved Chronic Dementia HTN Plan - Patient don't have IV access. Will switch ceftriaxone to cefdinir for 2 more days. F/u blood and urine cx. NGTD - GREGORY resolve - weakness possibly from dehydration. - PT/OT recommended SNF placement. Patient at increased risk of fall and unsafe to go home. Patient needing too much care for Family to be able take care of her. Will need placement arranged before can be discharged. - heparin for DVT prophylaxis - Time Spent with Patient Total time spent is greater than 50% in coordination of care (as documented) at patient's floor/unit and/or counseling patient: Internal Medicine: Result - Labs CBC & Chem 7: 10/13/18 04:34 10/13/18 04:34 - ABG Interpretation ABG results: PT/INR, D-dimer PT 11.0 Seconds (9.4-12.1) 10/12/18 15:38 Consult Discharge Plan - Plan Referrals: Sergei Anderson DO [Primary Care Provider] - (3) UTI (urinary tract infection) Qualifiers: Urinary tract infection type: acute cystitis Hematuria presence: without hematuria Qualified Code(s): N30.00 - Acute cystitis without hematuria (4) Dementia Qualifiers: Dementia type: Alzheimer's disease Alzheimer's disease onset: unspecified onset Dementia behavioral disturbance: without behavioral disturbance Qualified Code(s): G30.9 - Alzheimer's disease, unspecified; F02.80 - Dementia in other diseases classified elsewhere without behavioral disturbance (7) Hypertension Qualifiers: Hypertension type: essential hypertension Qualified Code(s): I10 - Essential (primary) hypertension
[2018-10-14] MEDS: 0.9 % Sodium Chloride 1,000 ML IVC SCH (12:38)
[2018-10-14] MEDS ORDERED: Cefdinir 300 MG CAPSULE PO SCH ×2 (13:15→14:30)
[2018-10-14] MEDS: traZODone 50 MG TABLET PO SCH (20:43)
[2018-10-14] MEDS: Cefdinir 300 MG CAPSULE PO SCH (21:11)
[2018-10-15] MEDS: *HR* Heparin 5,000 UNIT/ML VIAL SQ SCH ×2 (06:07→18:26)
[2018-10-15] MEDS: Sennosides/Docusate Sodium TABLET PO SCH ×2 (09:11→21:27)
[2018-10-15] MEDS: Cefdinir 300 MG CAPSULE PO SCH (09:11)
[2018-10-15] MEDS: amLODIPine 5 MG TABLET PO SCH (09:11)
--- NOTE | 2018-10-15 11:59 | Internal Med Progress Note ---
Hospitalist Progress Note - Encounter Date of Encounter: 10/15/18 Time of Encounter: 10:58 - Subjective Interval History: Patient seen and examined this morning at bedside. No acute overnight events. Patient without new complaints. Alert and oriented 3. Denies new complaints. Denies any chest pain and difficulty breathing abdominal pain back pain nausea vomiting or diarrhea. - Exam Vitals: Temp Pulse Resp BP Pulse Ox 97.8 F 72 18 123/55 95 10/15/18 11:46 10/15/18 11:46 10/15/18 11:46 10/15/18 11:46 10/15/18 11:46 Exam: General: In no acute distress. Respiratory exam: CTAB. no accessory muscle use, rales, rhonchi, wheezes Cardiovascular exam: RRR, +S1, +S2. no murmur, gallop, rubs. GI/Abdominal exam: Non-tender, Non-distended, normal bowel sounds, soft, no peritoneal signs. Extremities exam: no pedal edema, pulses palpable in b/l lower extremities. no calf tenderness Neurological exam: CN II-XII intact, AO X1, no focal deficits. - Assessment and Plan (1) GREGORY (acute kidney injury) Current Visit: Yes Status: Acute (2) CKD (chronic kidney disease), stage III Current Visit: No Status: Acute (3) UTI (urinary tract infection) Current Visit: Yes Status: Acute (4) Dementia Current Visit: Yes Status: Acute (5) Weakness Current Visit: Yes Status: Acute (6) DVT prophylaxis Current Visit: Yes Status: Acute (7) Hypertension Current Visit: Yes Status: Acute - Summary of Assessment and Plan Summary of Assessment and Plan: Assessment Acute UTI Weakness GREGORY on CKD3-resolved Chronic Dementia HTN HLd Plan - finish abx today. F/u blood, NGTD. Urine cx with no growth - GREGORY resolve - weakness possibly from dehydration. - Will start atorvastatin as simvastatin and amlodipine not ideal combination. - PT/OT recommended SNF placement. Patient at increased risk of fall and unsafe to go home. Patient needing too much care for Family to be able take care of her. Will need placement arranged before can be discharged. Will be able to discharge tomorrow. - heparin for DVT prophylaxis Internal Medicine: Result - Labs CBC & Chem 7: 10/13/18 04:34 10/13/18 04:34 - ABG Interpretation ABG results: PT/INR, D-dimer PT 11.0 Seconds (9.4-12.1) 10/12/18 15:38 Consult Discharge Plan - Plan Referrals: Sergei Anderson DO [Primary Care Provider] - (3) UTI (urinary tract infection) Qualifiers: Urinary tract infection type: acute cystitis Hematuria presence: without hematuria Qualified Code(s): N30.00 - Acute cystitis without hematuria (4) Dementia Qualifiers: Dementia type: Alzheimer's disease Alzheimer's disease onset: unspecified onset Dementia behavioral disturbance: without behavioral disturbance Qualified Code(s): G30.9 - Alzheimer's disease, unspecified; F02.80 - Dementia in other diseases classified elsewhere without behavioral disturbance (7) Hypertension Qualifiers: Hypertension type: essential hypertension Qualified Code(s): I10 - Essential (primary) hypertension
[2018-10-15] MEDS: traZODone 50 MG TABLET PO SCH (21:27)
[2018-10-16] MEDS: *HR* Heparin 5,000 UNIT/ML VIAL SQ SCH (05:55)
[2018-10-16] MEDS: Sennosides/Docusate Sodium TABLET PO SCH (09:17)
[2018-10-16] MEDS: amLODIPine 5 MG TABLET PO SCH (09:17)
[2018-10-16] MEDS: Cefdinir 300 MG CAPSULE PO SCH (09:17)
[2018-10-16 10:41] VITALS: BP 135/69
--- NOTE | 2018-10-16 11:56 | Discharge Summary ---
Orders not resulted at time of discharge: Pending orders 10/12/18 15:13 ECG 12 lead ECG [ECG] Stat 10/12/18 15:38 Culture,Blood [BC] Stat Date of Encounter: 10/16/18 Time of Encounter: 11:52 - Discharge Diagnosis (1) GREGORY (acute kidney injury) Priority: Primary Status: Acute (2) CKD (chronic kidney disease), stage III Priority: Secondary Status: Acute (3) UTI (urinary tract infection) Priority: Primary Status: Acute Qualifiers: Urinary tract infection type: acute cystitis Hematuria presence: without hematuria Qualified Code(s): N30.00 - Acute cystitis without hematuria (4) Dementia Priority: Secondary Status: Acute Qualifiers: Dementia type: Alzheimer's disease Alzheimer's disease onset: unspecified onset Dementia behavioral disturbance: without behavioral disturbance Qualified Code(s): G30.9 - Alzheimer's disease, unspecified; F02.80 - Dementia in other diseases classified elsewhere without behavioral disturbance (5) Weakness Priority: Primary Status: Acute (6) DVT prophylaxis Priority: Secondary Status: Acute (7) Hypertension Priority: Secondary Status: Acute Qualifiers: Hypertension type: essential hypertension Qualified Code(s): I10 - Essential (primary) hypertension Hospital course: Ms. Marvin is a 78 year old female past medical history of Alzheimer's dementia, hypertension, hyperlipidemia came in with progressive weakness was found to have GREGORY and UTI. Patient was started on empiric antibiotics. Patient's renal function improved with IV fluids. Patient finished a 4 day course of antibi otic. Urine culture and blood culture did not grow any organism. Patient was recommended rehabilitation per physical therapy evaluation. Patient is otherwise stable to be discharged to SNF for further physical therapy. Patient rested and was changed to atorvastatin given seasonal amlodipine and she was given a prescription for trazodone refill. Discharge discussed with: patient, family, nurse, social work - Time Spent with Patient Total time spent providing and/or coordinating discharge services: Time spent: Greater than 30 minutes (40) - Discharge Medications Prescriptions: New Atorvastatin [Lipitor] 20 mg PO HS 30 Days #30 tablet traZODone [TraZODone] 50 mg PO HS 30 Days #30 tablet Continued Cetirizine HCl [Zyrtec] 10 mg PO DAILY PRN PRN Reason: Allergy Symptoms Memantine HCl 10 mg PO BID Metoprolol [Lopressor] 25 mg PO HS Trazodone HCl 50 mg PO HS Amlodipine Besylate 5 mg PO QAM Discontinued Simvastatin [Zocor] 40 mg PO QAM Home Medications: Cetirizine HCl [Zyrtec] 10 mg PO DAILY PRN 03/22/15 [History] Memantine HCl 10 mg PO BID 08/30/17 [History] Metoprolol [Lopressor] 25 mg PO HS 08/30/17 [History] Trazodone HCl 50 mg PO HS 10/12/18 [History] Amlodipine Besylate 5 mg PO QAM 10/14/18 [History] Atorvastatin [Lipitor] 20 mg PO HS 30 Days #30 tablet 10/16/18 [Rx] traZODone [TraZODone] 50 mg PO HS 30 Days #30 tablet 10/16/18 [Rx] Allergies/Adverse Reactions: Allergy/AdvReac Type Severity Reaction Status Date / Time Penicillins Allergy Hives Verified 05/15/18 09:31 Sulfa (Sulfonamide Allergy Hives Verified 05/15/18 09:31 Antibiotics) Date of admission: 10/13/18 14:53 Primary care physician: Richard Anderson DO Consults: 10/12/18 20:15 Consult to Physical Therapy [CONS] Routine Comment: Evaluate, develop and implement POC Reason for Consult: Weakness Does patient have active BEDREST order?: No Is patient medically & hemodynamically stable?: Yes 10/12/18 21:31 Consult to Senior Web Engineer [CONS] Routine Reason for SW Consult: Discharge planning per family request (awaiting paperwork for vinyards) Discharging clinician: Ayana Kapoor - Constitutional Vitals: Temp Pulse Resp BP Pulse Ox 97.8 F 76 16 135/69 76 10/16/18 10:40 10/16/18 10:40 10/16/18 10:40 10/16/18 10:40 10/16/18 10:40 Exam: General: In no acute distress. Respiratory exam: CTAB. no accessory muscle use, rales, rhonchi, wheezes Cardiovascular exam: RRR, +S1, +S2. no murmur, gallop, rubs. GI/Abdominal exam: Non-tender, Non-distended, normal bowel sounds, soft, no peritoneal signs. Extremities exam: no pedal edema, pulses palpable in b/l lower extremities. no calf tenderness Neurological exam: CN II-XII intact, AO X1, no focal deficits. - Patient Status Disposition: Transfer SNF Condition: Fair - Discharge Instructions Follow Up With: Sergei Anderson DO [Primary Care Provider] - - Diet and Activity Activity: as per physical therapy
--- NOTE | 2018-10-16 11:59 | Physician Discharge Referral ---
ExtendedCare Referral Info Institutional Level of Care: Skilled - Diagnosis (1) GREGORY (acute kidney injury) Status: Acute (2) CKD (chronic kidney disease), stage III Status: Acute (3) UTI (urinary tract infection) Status: Acute (4) Dementia Status: Acute (5) Weakness Status: Acute (6) DVT prophylaxis Status: Acute (7) Hypertension Status: Acute - Transfer Medications Prescriptions: Atorvastatin [Lipitor] 20 mg PO HS 30 Days #30 tablet traZODone [TraZODone] 50 mg PO HS 30 Days #30 tablet Home Medications: Cetirizine HCl [Zyrtec] 10 mg PO DAILY PRN 03/22/15 [History] Memantine HCl 10 mg PO BID 08/30/17 [History] Metoprolol [Lopressor] 25 mg PO HS 08/30/17 [History] Trazodone HCl 50 mg PO HS 10/12/18 [History] Amlodipine Besylate 5 mg PO QAM 10/14/18 [History] Atorvastatin [Lipitor] 20 mg PO HS 30 Days #30 tablet 10/16/18 [Rx] traZODone [TraZODone] 50 mg PO HS 30 Days #30 tablet 10/16/18 [Rx] Allergies/Adverse Reactions: Allergy/AdvReac Type Severity Reaction Status Date / Time Penicillins Allergy Hives Verified 05/15/18 09:31 Sulfa (Sulfonamide Allergy Hives Verified 05/15/18 09:31 Antibiotics) - Respiratory Orders Smoking Cessation: Smoking cessation has been advised. For more information, call the [place] Tobacco Quit Line at 3-912-WVMVNOW. CERTIFICATION: I certify that the transfer of the above named patient to an Extended Care Facility is necessary for the continuing treatment of the diagnosis listed. The above information is true and accurate reflection of patient's current condition. Confidential - Redisclosure prohibited without a patient's written consent.
== END 2018-10-16 15:13 | DRG 683 ==
LOC: EMEROOARM 15:02 → 3ANU 15:02 → SUATTDRO 20:19 → 3ANU 21:09
PROVIDERS: ADMIT Family Medicine; ATTEND Internal Medicine